=== PATIENT | female | born 1990 | race Hispanic/Latino ===

== ENCOUNTER 2019-05-26 19:39 | Emergency (ER) | payer OTHER, SELFPAY ==
[2019-05-26] MEDS ORDERED: TETANUS & DIPHTHERIA TOX,ADULT 0.5 ML VIAL ONE (20:08)
--- NOTE | 2019-05-26 20:31 | EDPHYS ---
Physician Documentation [facility] Name: Tara Sykes Age: 28 yrs Sex: Female : 1990 Arrival Date: 05/26/2019 Time: 19:41 Bed 20 Private MD: ED Physician Magdi Hobson HPI: 05/25 20:48 This 28 yrs old Female presents to ER via Ambulatory with complaints of kb Laceration To Leg. 20:48 The patient has a laceration related to: cutting the bottom of her boot with a razor kb blade and it slipped, cutting her right thigh occurred at home, and there are no complicating factors. The injury was accidental. The laceration(s) is(are) located on the right quadriceps. Onset: The symptoms/episode began/occurred just prior to arrival. Associated signs and symptoms: The patient has no apparent associated signs or symptoms. The patient has not experienced similar symptoms in the past. The patient has not recently seen a physician. 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 - Social history:: Smoking status: Patient reports the use of cigarette tobacco products, smokes one-half pack cigarettes per day. ROS: 20:44 Constitutional: Negative for fever, chills, and weight loss, Cardiovascular: Negative kb for chest pain, palpitations, and edema, Respiratory: Negative for shortness of breath, cough, wheezing, and pleuritic chest pain, Abdomen/GI: Negative for abdominal pain, nausea, vomiting, diarrhea, and constipation, Back: Negative for injury and pain, MS/Extremity: Negative for injury and deformity, Neuro: Negative for headache, weakness, numbness, tingling, and seizure. 20:44 Skin: Positive for laceration(s), of the right quadriceps. Exam: 20:44 Constitutional: This is a well developed, well nourished patient who is awake, alert, kb and in no acute distress. Head/Face: Normocephalic, atraumatic. Chest/axilla: Normal chest wall appearance and motion. Nontender with no deformity. No lesions are appreciated. Cardiovascular: Regular rate and rhythm with a normal S1 and S2. No gallops, murmurs, or rubs. Normal PMI, no JVD. No pulse deficits. Respiratory: Lungs have equal breath sounds bilaterally, clear to auscultation and percussion. No rales, rhonchi or wheezes noted. No increased work of breathing, no retractions or nasal flaring. Abdomen/GI: Soft, non-tender, with normal bowel sounds. No distension or tympany. No guarding or rebound. No evidence of tenderness throughout. MS/ Extremity: Pulses equal, no cyanosis. Neurovascular intact. Full, normal range of motion. Neuro: Awake and alert, GCS 15, oriented to person, place, time, and situation. Cranial nerves II-XII grossly intact. Motor strength 5/5 in all extremities. Sensory grossly intact. Cerebellar exam normal. Normal gait. 20:44 Skin: injury, laceration(s), the wound is approximately 5 cm(s), of the right quadriceps, that can be described as clean, no foreign body, linear, with mild bleeding. Vital Signs: 19:51 BP 123 / 84; Pulse 82; Resp 16 S; Temp 97(O); Pulse Ox 97% on R/A; Weight 68.04 kg (R); ca1 Height 5 ft. 4 in. (162.56 cm) (R); 19:51 Body Mass Index 25.75 (68.04 kg, 162.56 cm) ca1 Laceration: 20:46 Wound Repair of 5cm ( 2.0in ) subcutaneous laceration to right quadriceps. Linear kb shaped.. Distal neuro/vascular/tendon intact. Anesthesia: Wound infiltrated with 8 mls of 1% lidocaine. Wound prep: Extensive cleansing with hibiclenz by me, Wound irrigation with saline by me, Copious irrigation. Skin closed with 5 4-0 Prolene using 3 cruciate sutures and 2 simple sutures placed . Patient tolerated well. MDM: 19:55 Patient medically screened. kb 20:32 Data reviewed: vital signs, nurses notes. Data interpreted: Pulse oximetry: on room air kb is 97 %. Interpretation: normal. 20:45 Counseling: I had a detailed discussion with the patient and/or guardian regarding: the kb historical points, exam findings, and any diagnostic results supporting the discharge/admit diagnosis, the need for outpatient follow up, a family practitioner, to return to the emergency department if symptoms worsen or persist or if there are any questions or concerns that arise at home. 05/25 19:59 Order name: Prolene, Sutures; Complete Time: 20:20 kb 05/25 19:59 Order name: Dressing - Wound; Complete Time: 20:20 kb 05/25 19:59 Order name: Gloves, Sterile; Complete Time: 20:19 kb 05/25 19:59 Order name: Setup Suture Tray; Complete Time: 20:19 kb Administered Medications: 20:10 Drug: Tetanus-Diphtheria Toxoid Adult 0.5 ml {Water And Fire Technician: PISTIS Consult. Exp: ea 02/18/2021. Lot #: [id number]. } Route: IM; Site: right deltoid; 20:50 Follow up: Response: No adverse reaction 20:19 Drug: Lidocaine (1 %) 1 vials {Note: administered per provider during lac repair.} ah Volume: 20 ml; Route: Infiltration; Disposition: 05/26 04:08 Co-signature as Attending Physician, Magdi Hobson MD I agree with the assessment and tw4 plan of care. Disposition: 05/26/19 20:30 Discharged to Home. Impression: Laceration without foreign body of lower leg - right thigh. - Condition is Stable. - Discharge Instructions: Laceration Care, Adult, [id number]. - Medication Reconciliation Form, Thank You Letter, Antibiotic Education, Prescription Opioid Use form. - Follow up: Emergency Department; When: As needed; Reason: Worsening of condition. Follow up: Private Physician; When: 2 - 3 days; Reason: Recheck today's complaints, Continuance of care, Re-evaluation by your physician. - Notes: Have sutures removed in 10-14 days Watch for signs of infection, including redness, swelling, drainage, and warmth Keep clean and dry Signatures: Loretta Ramos FNP-C FNP-Rachel Hi RN RN ea Wadley, Terrence, MD MD tw4 Jeri Ring RN RN ca1 Harris, Amy, RN RN Corrections: (The following items were deleted from the chart) 05/25 20:55 20:30 05/26/2019 20:30 Discharged to Home. Impression: Laceration without foreign body ea of lower leg - right thigh. Condition is Stable. Forms are Medication Reconciliation Form, Thank You Letter, Antibiotic Education, Prescription Opioid Use. Follow up: Emergency Department; When: As needed; Reason: Worsening of condition. Follow up: Private Physician; When: 2 - 3 days; Reason: Recheck today's complaints, Continuance of care, Re-evaluation by your physician. kb
--- NOTE | 2019-05-26 20:31 | ER ---
Nurse's Notes [facility] Name: Tara Sykes Age: 28 yrs Sex: Female : 1990 Arrival Date: 05/26/2019 Time: 19:41 Bed 20 Private MD: Diagnosis: Laceration without foreign body of lower leg-right thigh Presentation: 05/25 19:51 Chief complaint: Patient states: Accidentally cut self with a razor blade on the R ca1 thigh. Coronavirus screen: The patient has NOT traveled to a country currently being monitored by the [facility] within the last 14 days. The patient has NOT had contact with any known and/or suspected case of coronavirus. Ebola Screen: Patient negative for fever greater than or equal to 101.5 degrees Fahrenheit, and additional compatible Ebola Virus Disease symptoms Patient denies exposure to infectious person. Patient denies travel to an Ebola-affected area in the 21 days before illness onset. No symptoms or risks identified at this time. Initial Sepsis Screen: Does the patient meet any 2 criteria? No. Patient's initial sepsis screen is negative. Does the patient have a suspected source of infection? No. Patient's initial sepsis screen is negative. Risk Assessment: Do you want to hurt yourself or someone else? Patient reports no desire to harm self or others. Onset of symptoms was May 26, 2019. 19:51 Method Of Arrival: Ambulatory ca1 19:51 Acuity: NIKKI 4 ca1 22:09 Complicating Factors: There are no complicating factors for this patient. 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 - Social history:: Smoking status: Patient reports the use of cigarette tobacco products, smokes one-half pack cigarettes per day. Screenin:13 Abuse screen: Denies threats or abuse. Nutritional screening: No deficits noted. Tuberculosis screening: No symptoms or risk factors identified. Fall Risk None identified. Assessment: 20:06 General: Appears uncomfortable, Behavior is calm, cooperative. Pain: Complains of pain ah in right quadriceps Pain does not radiate. Pain currently is 8 out of 10 on a pain scale. Quality of pain is described as burning, sharp, Pain began 1 hour ago. Neuro: Level of Consciousness is awake, alert, Oriented to person, place, time, situation. Cardiovascular: Heart tones S1 S2 present Capillary refill < 3 seconds Patient's skin is warm and dry. Respiratory: Airway is patent Respiratory effort is even, unlabored, Respiratory pattern is regular, symmetrical, Breath sounds are clear bilaterally. GI: No signs and/or symptoms were reported involving the gastrointestinal system. : No signs and/or symptoms were reported regarding the genitourinary system. EENT: No signs and/or symptoms were reported regarding the EENT system. Musculoskeletal: No signs and/or symptoms reported regarding the musculoskeletal system. Injury Description: Laceration sustained to right quadriceps is clean, 2.6 to 7.5 cm long, bleeding moderately, was sustained 30-60 minutes ago. is bleeding moderately. 20:54 Reassessment: Patient and/or family updated on plan of care and expected duration. Pain ea level reassessed. Patient is alert, oriented x 3, equal unlabored respirations, skin warm/dry/pink. Discharge instruction given to patient, verbalized the understanding fo instruction. Pt left ED accompanied by family, pt tolerating well. Vital Signs: 19:51 BP 123 / 84; Pulse 82; Resp 16 S; Temp 97(O); Pulse Ox 97% on R/A; Weight 68.04 kg (R); ca1 Height 5 ft. 4 in. (162.56 cm) (R); 19:51 Body Mass Index 25.75 (68.04 kg, 162.56 cm) ca1 ED Course: 19:41 Patient arrived in ED. cl3 19:52 Triage completed. ca1 19:52 [facility]oret[facility] Ramos [facility]C [facility] kb 19:52 Magdi Hobson MD is Attending Physician. kb 19:53 Arm band placed on right wrist. ca1 19:56 Ebony Barrios, RN is Primary Nurse. 20:14 Patient has correct armband on for positive identification. Bed in low position. Call light in reach. 20:15 Assist provider with laceration repair Set up tray. Performed by Loretta DONALD. 20:54 Patient did not have IV access during this emergency room visit. ea Administered Medications: 20:10 Drug: Tetanus-Diphtheria Toxoid Adult 0.5 ml {Child Protective Investigator: Jobydu. Exp: ea 02/18/2021. Lot #: [id number]. } Route: IM; Site: right deltoid; 20:50 Follow up: Response: No adverse reaction ea 20:19 Drug: Lidocaine (1 %) 1 vials {Note: administered per provider during lac repair.} ah Volume: 20 ml; Route: Infiltration; Outcome: 20:30 Discharge ordered by . avni 20:53 Discharged to home ambulatory, with family. ea 20:53 Condition: stable 20:53 Discharge instructions given to patient, Instructed on discharge instructions, follow up and referral plans. Demonstrated understanding of instructions, follow-up care. 20:55 Patient left the ED. ea Signatures: Loretta Ramos, IT CONSULTANT-C IT CONSULTANT-Ckb Rachel Roberts RN RN Jeri Braun RN RN ca1 Lewis, Charde cl3 Ebony Barrios RN RN Corrections: (The following items were deleted from the chart) 19:54 19:51 68.04 kg Reported; Height 5 ft. 4 in. Reported; BMI: 25.7; ca1 ca1
[2019-05-26 21:08] VITALS: BP 123/84; TEMP 97; O2SAT 97
== END 2019-05-26 20:55 | disposition home or self-care (01) ==
LOC: ER 19:39
PROC: 0JQL0ZZ Repair Right Upper Leg Subcutaneous Tissue and Fascia, Open Approach (ICD-10-PCS; principal; 2019-05-26)
DX: S71.111A Laceration without foreign body, right thigh, initial encounter (principal); W45.8XXA Other foreign body or object entering through skin, initial encounter; Y93.89 Activity, other specified; Y92.9 Unspecified place or not applicable; Z23 Encounter for immunization; Z88.1 Allergy status to other antibiotic agents; F17.210 Nicotine dependence, cigarettes, uncomplicated
CPT/HCPCS: 90471; 90714; 99283

== ENCOUNTER 2019-09-12 22:44 | Emergency (ER) | payer SELFPAY ==
[2019-09-13 00:20] LABS: Absolute Lymphocytes (CBC) 2.4 K/uL (0.7-4.9); Basophils % 0.5 % (0-1.3); Lymphocytes % 39.4 % (15.3-44.8); MPV 8.9 fL (7.6-11.3); RBC Red Blood Cell Count 4.73 M/uL (3.86-4.86)
[2019-09-13 00:30] LABS: ALT/SGPT 25 U/L (12-78); AST/SGOT 14 U/L (15-37); Albumin 3.8 g/dL (3.4-5.0); Alkaline Phosphatase 63 U/L (45-117); BUN Blood Urea Nitrogen 9 mg/dL (7-18); Bicarbonate 28 mmol/L (21-32); Bilirubin Direct < 0.1 mg/dL (0-0.2); Bilirubin Total 0.3 mg/dL (0.2-1.0); Glucose Level 98 mg/dL (74-106); Lipase 104 U/L (73-393); Potassium 3.1 mmol/L (3.5-5.1); Protein, Total 7.6 g/dL (6.4-8.2); Sodium Level 142 mmol/L (136-145)
[2019-09-13] MEDS ORDERED: FAMOTIDINE 20 MG/2 ML VIAL IV ONE (01:03)
[2019-09-13] MEDS ORDERED: MORPHINE 4 MG/ML SYR ONE (01:03)
[2019-09-13] MEDS ORDERED: ONDANSETRON 4 MG/2 ML VIAL ONE (01:03)
[2019-09-13] MEDS ORDERED: NA CHLORIDE 0.9% 1,000 ML ONE (01:03)
[2019-09-13 03:04] LABS: Urine Blood 3+ (NEG); Urine Glucose NEGATIVE (NEG); Urine Protein TRACE (NEG); Urine Specific Gravity 1.025 (1.005-1.030); Urine pH 7.5 (5.0-7.0)
[2019-09-13] MEDS ORDERED: POTASSIUM CL SA 10 MEQ TAB PO ONE (04:08)
[2019-09-13] MEDS ORDERED: SMZ./TMP. 800/160 MG TABLET ONE (04:08)
[2019-09-13] MEDS ORDERED: metroNIDAZOLE 500 MG TABLET ONE (04:08)
--- NOTE | 2019-09-13 04:28 | ER ---
Nurse's Notes [facility] Name: Tara Sykes Age: 29 yrs Sex: Female : 1990 Arrival Date: 09/12/2019 Time: 22:47 Bed 15 Private MD: Diagnosis: Colitis Presentation: 09/11 23:00 Chief complaint: Patient states: epigastric pain that began about 4 days, reports sg having had sonia and then experienced vomiting, pt denies any medical problems, states not a heavy drinker. Coronavirus screen: Proceed with normal triage. Ebola Screen: Patient negative for fever greater than or equal to 101.5 degrees Fahrenheit, and additional compatible Ebola Virus Disease symptoms Patient denies exposure to infectious person. Patient denies travel to an Ebola-affected area in the 21 days before illness onset. No symptoms or risks identified at this time. Initial Sepsis Screen: Does the patient meet any 2 criteria? No. Patient's initial sepsis screen is negative. Does the patient have a suspected source of infection? No. Patient's initial sepsis screen is negative. Risk Assessment: Do you want to hurt yourself or someone else? Patient reports no desire to harm self or others. Onset of symptoms was September 12, 2019. Care prior to arrival: None. Transition of care: patient was not received from another setting of care. 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 - Social history:: Smoking status: Patient denies any tobacco usage or history of. Screenin:15 Abuse screen: Denies threats or abuse. Nutritional screening: No deficits noted. jb4 Tuberculosis screening: No symptoms or risk factors identified. Fall Risk None identified. Assessment: 23:15 General: Appears in no apparent distress. uncomfortable, Behavior is calm, cooperative, jb4 appropriate for age. Pain: Complains of pain in left upper quadrant Pain does not radiate. Pain currently is 6 out of 10 on a pain scale. Quality of pain is described as burning, stabbing, Aggravated by Eating, drinking, worst with alcohol consumption. Neuro: Level of Consciousness is awake, alert, obeys commands, Oriented to person, place, time, situation. Cardiovascular: Patient's skin is warm and dry. Respiratory: Airway is patent Respiratory effort is even, unlabored, Respiratory pattern is regular, symmetrical. GI: Abdomen is flat, non-distended, Bowel sounds present X 4 quads. Abd is soft and non tender X 4 quads. Reports upper abdominal pain, cramping, diarrhea, gaseousness, nausea, vomiting. : No signs and/or symptoms were reported regarding the genitourinary system. EENT: No signs and/or symptoms were reported regarding the EENT system. Derm: Skin is intact, Skin is pink, warm \T\ dry. Musculoskeletal: Circulation, motion, and sensation intact. Range of motion: intact in all extremities. 09/12 00:20 Reassessment: Patient appears in no apparent distress at this time. Patient and/or jb4 family updated on plan of care and expected duration. Pain level reassessed. Patient is alert, oriented x 3, equal unlabored respirations, skin warm/dry/pink. 00:59 Reassessment: Patient and/or family updated on plan of care and expected duration. Pain ea level reassessed. Patient is alert, oriented x 3, equal unlabored respirations, skin warm/dry/pink. Pt refusing pain medication and nausea meds at this time. 01:51 Reassessment: Patient appears in no apparent distress at this time. Patient and/or jb4 family updated on plan of care and expected duration. Pain level reassessed. Patient is alert, oriented x 3, equal unlabored respirations, skin warm/dry/pink. 03:00 Reassessment: Patient appears in no apparent distress at this time. Patient and/or jb4 family updated on plan of care and expected duration. Pain level reassessed. Patient is alert, oriented x 3, equal unlabored respirations, skin warm/dry/pink. 04:00 Reassessment: Patient appears in no apparent distress at this time. Patient and/or jb4 family updated on plan of care and expected duration. Pain level reassessed. Patient is alert, oriented x 3, equal unlabored respirations, skin warm/dry/pink. 04:47 Reassessment: Patient appears in no apparent distress at this time. Patient and/or jb4 family updated on plan of care and expected duration. Pain level reassessed. Patient is alert, oriented x 3, equal unlabored respirations, skin warm/dry/pink. PT verbalized understanding of d/c and follow up instructions. Questions and concerns adressed. Ambulated out of ED with steady gait. Patient states feeling better. Vital Signs: 00:15 BP 123 / 85; Pulse 62; Resp 16; Temp 97.2(TE); Pulse Ox 98% on R/A; Weight 58.97 kg jb4 (R); Height 5 ft. 3 in. (160.02 cm); Pain 6/10; 01:30 BP 121 / 91; Pulse 93; Resp 16; Pulse Ox 97% on R/A; jb4 02:30 BP 124 / 83; Pulse 77; Resp 16; Pulse Ox 99% on R/A; jb4 04:15 BP 112 / 75; Pulse 82; Resp 16; Pulse Ox 96% on R/A; jb4 00:15 Body Mass Index 23.03 (58.97 kg, 160.02 cm) 4 ED Course: 09/11 22:47 Patient arrived in ED. ds1 23:10 Triage completed. sg 23:12 Arm band placed on. sg 23:16 Brian Nichols, RN is Primary Nurse. jb4 23:40 Inserted saline lock: 20 gauge in left antecubital area, using aseptic technique. 4 09/12 00:15 Patient has correct armband on for positive identification. Bed in low position. Call jb4 light in reach. Side rails up X 1. Pulse ox on. NIBP on. 00:18 Chau Clay MD is Attending Physician. [facility] 03:10 CT Abd/Pelvis - IV Contrast Only In Process Unspecified. EDMS 04:47 No provider procedures requiring assistance completed. IV discontinued, intact, jb4 bleeding controlled, No redness/swelling at site. Pressure dressing applied. Administered Medications: 00:59 Drug: Pepcid 20 mg Route: IVP; Site: left antecubital; ea 01:20 Follow up: Response: No adverse reaction jb4 00:59 Drug: NS 0.9% 1000 ml Route: IV; Rate: 1000 ml; Site: left antecubital; ea 01:45 Follow up: Response: No adverse reaction; IV Status: Completed infusion; IV Intake: jb4 1000ml 01:51 Not Given (Patient Refused): morphine 4 mg IVP once; RASS on ADMIN: Combtv4, Very jb4 Agttd3, Agttd2, Rstlss1, AlertClm0, Drwsy-1, Lt Sdtn-2, Mod Sdtn-3, Dp Sdtn-4, UnArsble-5 01:51 Not Given (Patient Refused): Zofran (Ondansetron) 4 mg IVP once; over 2 minutes jb4 04:00 Drug: Bactrim (160 mg-800 mg (DS) 1 tablet Route: PO; jb4 04:40 Follow up: Response: No adverse reaction jb4 04:00 Drug: Flagyl 500 mg Route: PO; jb4 04:40 Follow up: Response: No adverse reaction jb4 04:00 Drug: Potassium Chloride 40 mEq Route: PO; jb4 04:40 Follow up: Response: No adverse reaction jb4 Intake: 01:45 IV: 1000ml; Total: 1000ml. jb4 Outcome: 04:27 Discharge ordered by . 7 04:47 Discharged to home ambulatory. jb4 04:47 Condition: stable 04:47 Discharge instructions given to patient, Instructed on discharge instructions, follow up and referral plans. medication usage, Demonstrated understanding of instructions, follow-up care, medications, Prescriptions given X 4. 04:50 Patient left the ED. jb4 Signatures: Dispatcher [employer] EDMS Rodger Dao RN RN sg Sanford, Demi ds1 Brian Nichols RN RN jb4 Rachel Roberts RN RN ea Huhn, Donald 4 Chau Clay MD MD 7
--- NOTE | 2019-09-13 04:28 | EDPHYS ---
Physician Documentation [facility] Name: Tara Sykes Age: 29 yrs Sex: Female : 1990 Arrival Date: 09/12/2019 Time: 22:47 Bed 15 Private MD: ED Physician Chau Clay HPI: 09/12 01:08 This 29 yrs old Female presents to ER via Ambulatory with complaints of mh7 Abdominal Pain. 01:08 The patient presents with abdominal pain in the left upper quadrant, in the left lower mh7 quadrant. Onset: The symptoms/episode began/occurred 1 week(s) ago. The symptoms do not radiate. Associated signs and symptoms: Pertinent positives: nausea and vomiting, Pertinent negatives: anorexia, blood in stools, chest pain, constipation, diarrhea, dysuria, fever, headache, hematuria, palpitations, shortness of breath, vaginal discharge, vomiting blood. The symptoms are described as intermittent, vague, waxing/waning. Modifying factors: The symptoms are alleviated by nothing, the symptoms are aggravated by nothing. Severity of pain: At its worst the pain was moderate last night, in the emergency department the pain has improved moderately. 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 - Social history:: Smoking status: Patient denies any tobacco usage or history of. ROS: 09/12 01:08 Constitutional: Negative for fever, chills, and weight loss, Eyes: Negative for injury, mh7 pain, redness, and discharge, ENT: Negative for injury, pain, and discharge, Neck: Negative for injury, pain, and swelling, Cardiovascular: Negative for chest pain, palpitations, and edema, Respiratory: Negative for shortness of breath, cough, wheezing, and pleuritic chest pain, Back: Negative for injury and pain, : Negative for injury, bleeding, discharge, and swelling, MS/Extremity: Negative for injury and deformity, Skin: Negative for injury, rash, and discoloration, Neuro: Negative for headache, weakness, numbness, tingling, and seizure, Psych: Negative for depression, anxiety, suicide ideation, homicidal ideation, and hallucinations, Allergy/Immunology: Negative for hives, rash, and allergies, Endocrine: Negative for neck swelling, polydipsia, polyuria, polyphagia, and marked weight changes, Hematologic/Lymphatic: Negative for swollen nodes, abnormal bleeding, and unusual bruising. Exam: 01:08 Constitutional: This is a well developed, well nourished patient who is awake, alert, mh7 and in no acute distress. Head/Face: Normocephalic, atraumatic. Eyes: Pupils equal round and reactive to light, extra-ocular motions intact. Lids and lashes normal. Conjunctiva and sclera are non-icteric and not injected. Cornea within normal limits. Periorbital areas with no swelling, redness, or edema. ENT: Nares patent. No nasal discharge, no septal abnormalities noted. Tympanic membranes are normal and external auditory canals are clear. Oropharynx with no redness, swelling, or masses, exudates, or evidence of obstruction, uvula midline. Mucous membranes moist. Neck: Trachea midline, no thyromegaly or masses palpated, and no cervical lymphadenopathy. Supple, full range of motion without nuchal rigidity, or vertebral point tenderness. No Meningismus. Chest/axilla: Normal chest wall appearance and motion. Nontender with no deformity. No lesions are appreciated. Cardiovascular: Regular rate and rhythm with a normal S1 and S2. No gallops, murmurs, or rubs. Normal PMI, no JVD. No pulse deficits. Respiratory: Lungs have equal breath sounds bilaterally, clear to auscultation and percussion. No rales, rhonchi or wheezes noted. No increased work of breathing, no retractions or nasal flaring. 01:08 Back: No spinal tenderness. No costovertebral tenderness. Full range of motion. Skin: Warm, dry with normal turgor. Normal color with no rashes, no lesions, and no evidence of cellulitis. MS/ Extremity: Pulses equal, no cyanosis. Neurovascular intact. Full, normal range of motion. Neuro: Awake and alert, GCS 15, oriented to person, place, time, and situation. Cranial nerves II-XII grossly intact. Motor strength 5/5 in all extremities. Sensory grossly intact. Cerebellar exam normal. Normal gait. Psych: Awake, alert, with orientation to person, place and time. Behavior, mood, and affect are within normal limits. 01:08 Abdomen/GI: Inspection: abdomen appears normal, Bowel sounds: normal, in all quadrants, Palpation: moderate abdominal tenderness, in the left upper quadrant and left lower quadrant, Rectal exam: the exam is deferred, because of patient request, Indicators: McBurney's point is not tender, Pham's sign is negative, Rovsing's sign is negative, Obturator sign is negative, Psoas sign is negative, Liver: no appreciated palpable abnormalities, Hernia: not appreciated. Vital Signs: 00:15 BP 123 / 85; Pulse 62; Resp 16; Temp 97.2(TE); Pulse Ox 98% on R/A; Weight 58.97 kg jb4 (R); Height 5 ft. 3 in. (160.02 cm); Pain 6/10; 01:30 BP 121 / 91; Pulse 93; Resp 16; Pulse Ox 97% on R/A; jb4 02:30 BP 124 / 83; Pulse 77; Resp 16; Pulse Ox 99% on R/A; jb4 04:15 BP 112 / 75; Pulse 82; Resp 16; Pulse Ox 96% on R/A; jb4 00:15 Body Mass Index 23.03 (58.97 kg, 160.02 cm) jb4 MDM: 00:50 Patient medically screened. 7 04:25 Differential diagnosis: bowel obstruction, diverticulitis, Ectopic , mh7 gastritis, gastroesophageal reflux disease, non-specific abd pain, pancreatitis, Peptic Ulcer Disease, Pyelonephritis, Ureterolithiasis, urinary tract infection. Data reviewed: vital signs, nurses notes, lab test result(s), CBC, electrolytes, urinalysis, radiologic studies, CT scan. Data interpreted: Pulse oximetry: on room air is 98 %. Interpretation: normal. Counseling: I had a detailed discussion with the patient and/or guardian regarding: the historical points, exam findings, and any diagnostic results supporting the discharge/admit diagnosis, lab results, radiology results, the need for outpatient follow up, to return to the emergency department if symptoms worsen or persist or if there are any questions or concerns that arise at home. Response to treatment: the patient's symptoms have resolved after treatment, the patient's blood pressure is in an acceptable range, mental status has returned to baseline, the patient no longer shows bradycardia, the patient is not short of breath, the patient is not tachycardic, the patient's pain is gone, the patient's temperature has normalized. 09/11 23:31 Order name: Basic Metabolic Panel; Complete Time: 00:51 09/11 23:31 Order name: CBC with Diff; Complete Time: 00:51 09/11 23:31 Order name: Hepatic Function; Complete Time: 00:51 09/11 23:31 Order name: Lipase; Complete Time: 00:51 09/12 01:08 Order name: Urine Dipstick--Ancillary (enter results); Complete Time: 03:43 09/12 01:08 Order name: Urine --Ancillary (enter results); Complete Time: 03:43 09/12 01:44 Order name: CT Abd/Pelvis - IV Contrast Only [facility] 09/11 23:31 Order name: IV Saline Lock; Complete Time: 00:07 09/11 23:31 Order name: Labs collected and sent; Complete Time: 00:07 09/12 00:51 Order name: Urine Dipstick-Ancillary (obtain specimen); Complete Time: 01:08 [facility] 09/12 00:51 Order name: Urine Test (obtain specimen); Complete Time: 01:08 [facility] Administered Medications: 00:59 Drug: Pepcid 20 mg Route: IVP; Site: left antecubital; ea 01:20 Follow up: Response: No adverse reaction jb4 00:59 Drug: NS 0.9% 1000 ml Route: IV; Rate: 1000 ml; Site: left antecubital; ea 01:45 Follow up: Response: No adverse reaction; IV Status: Completed infusion; IV Intake: jb4 1000ml 01:51 Not Given (Patient Refused): morphine 4 mg IVP once; RASS on ADMIN: Combtv4, Very jb4 Agttd3, Agttd2, Rstlss1, AlertClm0, Drwsy-1, Lt Sdtn-2, Mod Sdtn-3, Dp Sdtn-4, UnArsble-5 01:51 Not Given (Patient Refused): Zofran (Ondansetron) 4 mg IVP once; over 2 minutes jb4 04:00 Drug: Bactrim (160 mg-800 mg (DS) 1 tablet Route: PO; jb4 04:40 Follow up: Response: No adverse reaction jb4 04:00 Drug: Flagyl 500 mg Route: PO; jb4 04:40 Follow up: Response: No adverse reaction jb4 04:00 Drug: Potassium Chloride 40 mEq Route: PO; jb4 04:40 Follow up: Response: No adverse reaction jb4 Disposition: 09/13/19 04:27 Discharged to Home. Impression: Colitis. - Condition is Stable. - Discharge Instructions: Colitis. - Prescriptions for Zofran ODT 4 mg Oral tablet,disintegrating - place 1 tablet by TRANSLINGUAL route every 8 hours; 10 tablet. Bentyl 20 mg Oral Tablet - take 1 tablet by ORAL route every 6 hours As needed; 20 tablet. Flagyl 500 mg Oral Tablet - take 1 tablet by ORAL route every 8 hours for 10 days; 30 tablet. Bactrim DS 800- 160 mg Oral Tablet - take 1 tablet by ORAL route every 12 hours for 7 days; 14 tablet. - Medication Reconciliation Form, Thank You Letter, Antibiotic Education, Prescription Opioid Use form. - Follow up: Private Physician; When: 1 - 2 days; Reason: Worsening of condition, Recheck today's complaints, Re-evaluation by your physician. - Problem is new. - Symptoms have improved. Signatures: Dispatcher [employer] EDRodger Lyons RN RN sg Bryson, James RN CECE jb4 Rachel Roberts RN Chau Oliver ea, MD MD mh7 Corrections: (The following items were deleted from the chart) 04:50 04:27 09/13/2019 04:27 Discharged to Home. Impression: Colitis. Condition is Stable. jb4 Forms are Medication Reconciliation Form, Thank You Letter, Antibiotic Education, Prescription Opioid Use. Follow up: Private Physician; When: 1 - 2 days; Reason: Worsening of condition, Recheck today's complaints, Re-evaluation by your physician. Problem is new. Symptoms have improved. mh7
[2019-09-13 04:57] VITALS: TEMP 97.2
[2019-09-13 05:02] VITALS: BP 112/75; O2SAT 96
--- NOTE | 2019-09-14 12:30 | RAD REPORT ---
EXAM DESCRIPTION: CT - Abdomen Pelvis W Contrast - 09/13/2019 7:09 am CLINICAL HISTORY: ABD PAIN COMPARISON: None. TECHNIQUE: Axial CT imaging of the abdomen and pelvis performed with intravenous contrast. Reformatt ed coronal and sagittal images reviewed. A dose reduction technique was utilized with automated exposure control according to patient size. FINDINGS: Lung bases are clear. Heart is normal in size. Normal liver, gallbladder, spleen, pancreas, adrenal glands, and kidneys. Normal caliber aorta and in ferior vena cava. Mesenteric vessels appear normal. No retroperitoneal lymphadenopathy. Normal stomach and small bowel loops. Appendix is normal within the right hemipelvis. There is mild c ircumferential thickening of the ascending colon and transverse colon. No ascites or free air. Unremarkable bladder. Intrauterine device identified within the uterus in appropriate position. Anter ior uterine body hyperdense 4.5 cm mass compatible with fibroid. Mild pelvic free fluid. Follicular c hanges are present within both ovaries. Normal lumbar lordosis. Bilateral L5 pars defect with 5 mm anterior subluxation of L5 on S1. There is a mild L4-5 posterior left paracentral disc protrusion. Intact bony pelvis. Normal hips. There are s everal benign-appearing bone islands within the right and left inferior acetabulum, left superior vj tabulum, and right femoral head. IMPRESSION: 1. Mild colitis involving the ascending and transverse colon. 2. Intrauterine fibroids. 3. Follicular ovarian changes. Minimal pelvic free fluid. 4. Small posterior left paracentral L4-5 disc protrusion. 5. Bilateral L5 spondylolysis with grade 1 spondylolisthesis of L5 on S1. Electronically signed by: Brisa Bae DO 09/13/2019 3:20 AM VibesT Due to temporary technical issues with the PACS/Fluency reporting system, reports are being signed b y the in house radiologist without review as a courtesy to ensure prompt reporting. The interpreting radiologist is fully responsible for the content of the report.
== END 2019-09-13 04:50 | disposition home or self-care (01) ==
LOC: ER 22:44
DX: K52.9 Noninfective gastroenteritis and colitis, unspecified (principal); Z88.1 Allergy status to other antibiotic agents
CPT/HCPCS: 36415; 74177; 80048; 80076; 81003; 81025; 83690; 85025; 96361; 96374; 99284; J2405; J7030; Q9967

== ENCOUNTER 2019-12-08 20:32 | Inpatient (IN) | payer SELFPAY ==
--- NOTE | 2019-12-08 21:16 | RAD REPORT ---
EXAM DESCRIPTION: CT - Ct Stroke Brain Wo Cont - 12/08/2019 9:02 pm CLINICAL HISTORY: NUMBNESS, right-sided headache and right-sided weakness, right visual change COMPARISON: No comparisons TECHNIQUE: Axial 5 millimeter thick images of the head were obtained without IV contrast. All CT scans are performed using dose optimization technique as appropriate and may include automated exposure control or mA/KV adjustment according to patient size. FINDINGS: No intracranial hemorrhage, mass, or cerebral edema. No acute infarction identifiable. No extra-axial fluid collections. Romero matter-white matter differentiation is preserved. Visualized portions of the mastoid air cells, paranasal sinuses, and orbits are unremarkable. Findings telephoned to the referring physician 9:13 p.m.. IMPRESSION: No CT evidence of acute intracranial process. If the patient has continued findings concerning for acute CVA, follow-up MR imaging could be perform ed.
--- NOTE | 2019-12-08 21:35 | EDPHYS ---
Physician Documentation [facility] Name: Tara Sykes Age: 29 yrs Sex: Female : 1990 Arrival Date: 12/08/2019 Time: 20:36 Bed 4 Private MD: ED Physician Leodan Dowd HPI: 12/07 21:20 This 29 yrs old Female presents to ER via Ambulatory with complaints of pkl Weakness, Eye Problem, Dizziness. 21:20 The patient presents to the emergency department with weakness of the right upper pkl extremity, right lower extremity, a vision problem, blurred vision, right eye. Onset: The symptoms/episode began/occurred just prior to arrival, 2 hour(s) ago. Associated signs and symptoms: Pertinent positives: altered mental status, dizziness, headache, nausea, paresthesias, weakness, right upper and lower extremities. 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 - Social history:: Smoking status: Patient denies any tobacco usage or history of. Patient/guardian denies using alcohol, street drugs. ROS: 21:20 ENT: Negative for injury, pain, and discharge. pkl 21:20 Eyes: Positive for blurry vision, of the right eye. 21:20 Neck: Negative for stiffness. 21:20 Cardiovascular: Negative for chest pain. 21:20 Respiratory: Negative for acute changes. 21:20 Abdomen/GI: Negative for abdominal pain, nausea, vomiting, and diarrhea. 21:20 Back: Negative for acute changes. 21:20 : Negative for urinary symptoms. 21:20 MS/extremity: Negative for acute changes. 21:20 Skin: Negative for rash. 21:20 Neuro: Negative for altered mental status. Exam: 21:20 Head/Face: Normocephalic, atraumatic. Eyes: Pupils equal round and reactive to light, pkl extra-ocular motions intact. Lids and lashes normal. Conjunctiva and sclera are non-icteric and not injected. Cornea within normal limits. Periorbital areas with no swelling, redness, or edema. ENT: Nares patent. No nasal discharge, no septal abnormalities noted. Tympanic membranes are normal and external auditory canals are clear. Oropharynx with no redness, swelling, or masses, exudates, or evidence of obstruction, uvula midline. Mucous membranes moist. Neck: Trachea midline, no thyromegaly or masses palpated, and no cervical lymphadenopathy. Supple, full range of motion without nuchal rigidity, or vertebral point tenderness. No Meningismus. Chest/axilla: Normal chest wall appearance and motion. Nontender with no deformity. No lesions are appreciated. Cardiovascular: Regular rate and rhythm with a normal S1 and S2. No gallops, murmurs, or rubs. Normal PMI, no JVD. No pulse deficits. Respiratory: Lungs have equal breath sounds bilaterally, clear to auscultation and percussion. No rales, rhonchi or wheezes noted. No increased work of breathing, no retractions or nasal flaring. Abdomen/GI: Soft, non-tender, with normal bowel sounds. No distension or tympany. No guarding or rebound. No evidence of tenderness throughout. Back: No spinal tenderness. No costovertebral tenderness. Full range of motion. Skin: Warm, dry with normal turgor. Normal color with no rashes, no lesions, and no evidence of cellulitis. MS/ Extremity: Pulses equal, no cyanosis. Neurovascular intact. Full, normal range of motion. 21:20 Neuro: Orientation: is normal, Mentation: is normal, Memory: is normal, Cranial nerves: grossly normal, Cerebellar function: normal finger to nose testing, heel to rodriguez testing is normal, Motor: is normal, Sensation: is normal, Gait: is steady. Vital Signs: 20:52 BP 117 / 86; Pulse 86; Resp 16; Temp 98.0(TE); Pulse Ox 100% on R/A; Pain 6/10; jb4 21:42 BP 109 / 64; Pulse 64; Resp 16 S; Pulse Ox 98% on R/A; ca1 22:16 BP 95 / 75; Pulse 68; Resp 16 S; Pulse Ox 99% on R/A; ca1 NIH Stroke Scale Scores: 21:13 NIHSS Score: 0 ca1 MDM: 21:16 Patient medically screened. pkl 21:20 Data reviewed: vital signs, nurses notes, lab test result(s), EKG, radiologic studies. pkl 21:20 ED course: Talked to Dr. Faust, no thrombolytic. Patient's symptoms have resolved. pkl NIH Stroke scale 0. 12/07 21:22 Order name: Glucose, Ancillary Testing; Complete Time: 22:48 [facility] 12/07 21:39 Order name: Basic Metabolic Panel; Complete Time: 06:04 [facility] 12/07 21:39 Order name: CBC with Diff; Complete Time: 06:04 [facility] 12/07 21:39 Order name: Protime (+inr); Complete Time: 06:04 [facility] 12/07 21:39 Order name: Ptt, Activated; Complete Time: 06:04 [facility] 12/07 22:08 Order name: Urine Dipstick--Ancillary (enter results); Complete Time: 22:48 [facility] 12/07 20:59 Order name: Ct Stroke Brain Wo Cont; Complete Time: 21:33 [facility] 12/07 21:29 Order name: Chest Single View [facility] 12/07 21:39 Order name: EKG; Complete Time: 21:40 [facility] 12/07 21:39 Order name: Cardiac monitoring; Complete Time: 21:41 [facility] 12/07 21:39 Order name: EKG - Nurse/Tech; Complete Time: 21:41 [facility] 12/07 21:39 Order name: IV Saline Lock; Complete Time: 21:41 [facility] 12/07 22:08 Order name: Urine --Ancillary (enter results); Complete Time: 22:48 [facility] 12/07 21:39 Order name: Labs collected and sent; Complete Time: 21:41 [facility] 12/07 21:39 Order name: O2 Per Protocol; Complete Time: 21:41 [facility] 12/07 21:39 Order name: O2 Sat Monitoring; Complete Time: 21:41 [facility] 12/07 21:39 Order name: Stroke Swallow Screen; Complete Time: 21:41 la1 Administered Medications: 21:34 Drug: Aspirin 325 mg Route: PO; ca1 21:42 Follow up: Response: No adverse reaction ca1 Point of Care Testing: Blood Glucose: 21:18 Blood Glucose: 129 mg/dL; ca1 Ranges: Critical Glucose Levels:Adult <50 mg/dl or >400 mg/dl <40 mg/dl or >180 mg/dl Disposition: 12/08/19 21:34 Hospitalization ordered by Italo Alvarenga for Observation. Preliminary diagnosis is Acute heasache. Stroke symptoms ( Resolved ) Transient Ischemic Attack. - Bed requested for Telemetry/MedSurg (observation). - Status is Observation. bb - Condition is Stable. - Problem is new. - Symptoms are resolved. NIH Stroke Scale - NIH Stroke Score Date: 12/08/2019 Time: 21:13 Total Score = 0 1a. Level of Consciousness (LOC) - 0(Alert) 1b. Level of Consciousness (LOC) (Year \T\ Age) - 0(Both) 1c. LOC Commands (Open \T\ Closes Eyes/Sewer Cleaner) - 0(Both) 2. Best Gaze (Lateral Gaze Paresis) - 0(Normal) 3. Visual Field Loss - 0(No visual loss) 4. Facial Palsy - 0(Normal) 5a. Left Arm: Motor (10-second hold) - 0(No drift) 5b. Right Arm: Motor (10-second hold) - 0(No drift) 6a. Left Leg: Motor (5-second hold - always test supine) - 0(No drift) 6b. Right Leg: Motor (5-second hold - always test supine) - 0(No drift) 7. Limb Ataxia (finger/nose \T\ heel/rodriguez - test with eyes open) - 0(Absent) 8. Sensory Loss (pinprick arms/legs/face) - 0(Normal) 9. Best Language: Aphasia (description/naming/reading) - 0(No aphasia) 10. Dysarthria (speech clarity - read or repeat words) - 0(Normal) 11. Extinction and Inattention (visual/tactile/auditory/spatial/personal) - 0(No abnormality) Initials: ca1 Signatures: Dispatcher [employer] EDLeodan Schumacher MD MD pkl Fanny Henderson, RN RN bb Александр Yanez, [employer] OVEN ASSEMBLER-C [employer] ASSEMBLER-Cla1 Landy Amezquita, CECE RN cg Brian Nichols, CECE RN jb4 Jeri Ring RN RN ca1 Corrections: (The following items were deleted from the chart) 23:16 21:34 Hospitalization Ordered by Italo Alvarenga MD for Observation. Preliminary cg diagnosis is Acute heasache. Stroke symptoms ( Resolved ) Transient Ischemic Attack. Bed requested for Telemetry/MedSurg (observation). Status is Observation. Condition is Stable. Problem is new. Symptoms are resolved. pkl 23:31 23:16 12/08/2019 21:34 Hospitalization Ordered by Italo Alvarenga MD for bb Observation. Preliminary diagnosis is Acute heasache. Stroke symptoms ( Resolved ) Transient Ischemic Attack. Bed requested for Telemetry/MedSurg (observation). Status is Observation. Condition is Stable. Problem is new. Symptoms are resolved. cg
--- NOTE | 2019-12-08 21:35 | ER ---
Nurse's Notes [facility] – [place], [place] Name: Tara Sykes Age: 29 yrs Sex: Female : 1990 Arrival Date: 12/08/2019 Time: 20:36 Bed 4 Private MD: Diagnosis: Acute heasache. Stroke symptoms ( Resolved ) Transient Ischemic Attack Presentation: 12/07 20:52 Chief complaint: Chief complaint: Patient states: I was at work and felt weak on my jb4 right side. I have a a sharp headache on the right side of my head. I lost my right peripheral vision. I had right sided weakness and felt like I was going to fall over. I took a low dose aspirin prior to coming to the ED and my vision has improved some. 20:52 Coronavirus screen: Client denies travel out of the [place] in the last 14 days. At this jb4 time, the client does not indicate any symptoms associated with coronavirus-19. Ebola Screen: No symptoms or risks identified at this time. 20:52 Method Of Arrival: Ambulatory jb4 20:52 An acute neurological deficit is present. The charge nurse has been notified. The jb4 patient has been moved to a treatment area. Initial Sepsis Screen: Does the patient meet any 2 criteria? No. Patient's initial sepsis screen is negative. Does the patient have a suspected source of infection? No. Patient's initial sepsis screen is negative. Risk Assessment: Do you want to hurt yourself or someone else? Patient reports no desire to harm self or others. Onset of symptoms was December 08, 2019 at 19:00. Transition of care: patient was not received from another setting of care. 20:52 Acuity: NIKKI 2 jb4 21:18 Pre-hospital glucose is not applicable to this patient. ca1 Triage Assessment: 20:52 The onset of the patients symptoms was December 08, 2019 at 19:00. General: Appears in jb4 no apparent distress. uncomfortable, Behavior is calm, cooperative, appropriate for age. Pain: Complains of pain in Right sided headache. Neuro: Reports blurred vision in right eye dizziness, since 1900 headache in right frontal area, weakness in Right sided. 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 - Social history:: Smoking status: Patient denies any tobacco usage or history of. Patient/guardian denies using alcohol, street drugs. Screenin:13 Abuse screen: Denies threats or abuse. Denies injuries from another. Nutritional ca1 screening: No deficits noted. Tuberculosis screening: No symptoms or risk factors identified. Fall Risk IV access (20 points). Assessment: 20:55 Reassessment: TO CT with CECE Vinson. ca1 21:13 VAN Scoring: Arm Drift: Patients demonstrates NO arm weakness. Patient is VAN Negative. ca1 Patient has been NPO before screening. The patient is alert, and able to follow commands. The patient does not exhibit slurred or garbled speech. The patient is not exhibiting difficulty speaking. The patient does not exhibit difficulty understanding words. The patient is able to swallow own secretions with no drooling or need for suction. Patient tolerated one teaspoon of water. No drooling, immediate coughing, gurgling, or clearing of the throat was noted. The patient tolerated 90mL of water. No drooling, immediate coughing, gurgling, or clearing of the throat was noted. The patient passed the bedside swallow screening. Oral medications may be given as ordered. Contact Physician for further diet orders. Provider notified of bedside swallow screening results: Leodan Dowd MD. 21:16 General: Appears in no apparent distress. comfortable, Behavior is calm, cooperative, ca1 appropriate for age. Pain: Complains of pain in face and scalp Pain currently is 6 out of 10 on a pain scale. Pain began 2-3 days ago. 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 Gait is steady, Speech is normal, Facial symmetry appears normal, Pupils are PERRLA, Intact Reports blurred vision in right eye diplopia. Cardiovascular: Heart tones S1 S2 present Capillary refill < 3 seconds Patient's skin is warm and dry. Rhythm is sinus rhythm. Respiratory: Airway is patent Respiratory effort is even, unlabored, Respiratory pattern is regular, symmetrical, Breath sounds are clear bilaterally. GI: Abdomen is flat, non-distended, Bowel sounds present X 4 quads. Abd is soft and non tender X 4 quads. : No signs and/or symptoms were reported regarding the genitourinary system. EENT: No signs and/or symptoms were reported regarding the EENT system. Derm: Skin is intact, is healthy with good turgor, Skin is pink, warm \T\ dry. Musculoskeletal: Circulation, motion, and sensation intact. Capillary refill < 3 seconds. 22:05 Reassessment: Patient appears in no apparent distress at this time. Patient and/or ca1 family updated on plan of care and expected duration. Pain level reassessed. Patient is alert, oriented x 3, equal unlabored respirations, skin warm/dry/pink. 22:24 Reassessment: Patient and/or family updated on plan of care and expected duration. Pain jb4 level reassessed. Patient is alert, oriented x 3, equal unlabored respirations, skin warm/dry/pink. Pt is sitting up in bed. Performed ramirez of view test again on both eyes. Pt reports having full peripheral vision back. 23:24 T-PA (Activase) Screening: Contraindications: Other: symptoms resolved. bb 23:25 Reassessment: report called to Brandy ZHAO for room 216. bb Vital Signs: 20:52 BP 117 / 86; Pulse 86; Resp 16; Temp 98.0(TE); Pulse Ox 100% on R/A; Pain 6/10; jb4 21:42 BP 109 / 64; Pulse 64; Resp 16 S; Pulse Ox 98% on R/A; ca1 22:16 BP 95 / 75; Pulse 68; Resp 16 S; Pulse Ox 99% on R/A; ca1 NIH Stroke Scale Scores: 21:13 NIHSS Score: 0 ca1 ED Course: 20:36 Patient arrived in ED. cf2 20:55 Arm band placed on right wrist. Patient PT to CT. jb4 21:02 Ct Stroke Brain Wo Cont In Process Unspecified. EDMS 21:09 Triage completed. jb4 21:13 Patient has correct armband on for positive identification. Placed in gown. Bed in low ca1 position. Call light in reach. Side rails up X2. manager creative services on. Pulse ox on. NIBP on. Warm blanket given. 21:13 No provider procedures requiring assistance completed. Initial lab(s) drawn, by me, ca1 sent to lab. Inserted saline lock: 20 gauge in left antecubital area, using aseptic technique. Blood collected. 21:16 Leodan Dowd MD is Attending Physician. pkl 21:32 Italo Alvarenga MD is Hospitalizing Provider. pkl 21:33 Jeri Ring RN is Primary Nurse. ca1 21:46 Chest Single View In Process Unspecified. EDMS 22:20 Report given to CECE Vinson. ca1 23:25 Patient admitted, IV remains in place. bb Administered Medications: 21:34 Drug: Aspirin 325 mg Route: PO; ca1 21:42 Follow up: Response: No adverse reaction ca1 Point of Care Testing: Blood Glucose: 21:18 Blood Glucose: 129 mg/dL; ca1 Ranges: Outcome: 21:34 Decision to Hospitalize by Provider. pkl 23:24 Admitted to Tele accompanied by tech, via wheelchair, room 216, with chart, Report bb called to Brandy ZHAO 23:24 Condition: stable 23:24 Instructed on the need for admit. 23:31 Patient left the ED. bb NIH Stroke Scale - NIH Stroke Score Date: 12/08/2019 Time: 21:13 Total Score = 0 1a. Level of Consciousness (LOC) - 0(Alert) 1b. Level of Consciousness (LOC) (Year \T\ Age) - 0(Both) 1c. LOC Commands (Open \T\ Closes Eyes/Packaging Supervisor) - 0(Both) 2. Best Gaze (Lateral Gaze Paresis) - 0(Normal) 3. Visual Field Loss - 0(No visual loss) 4. Facial Palsy - 0(Normal) 5a. Left Arm: Motor (10-second hold) - 0(No drift) 5b. Right Arm: Motor (10-second hold) - 0(No drift) 6a. Left Leg: Motor (5-second hold - always test supine) - 0(No drift) 6b. Right Leg: Motor (5-second hold - always test supine) - 0(No drift) 7. Limb Ataxia (finger/nose \T\ heel/rodriguez - test with eyes open) - 0(Absent) 8. Sensory Loss (pinprick arms/legs/face) - 0(Normal) 9. Best Language: Aphasia (description/naming/reading) - 0(No aphasia) 10. Dysarthria (speech clarity - read or repeat words) - 0(Normal) 11. Extinction and Inattention (visual/tactile/auditory/spatial/personal) - 0(No abnormality) Initials: ca1 Signatures: Dispatcher [employer] EDLeodan Schumacher MD MD pkl Fanny Henderson RN RN bb Brain Nichols RN RN jb4 Jeri Ring RN RN ca1 Masha Gilliam cf2 Corrections: (The following items were deleted from the chart) 21:09 20:52 Chief complaint: dania najera
[2019-12-08] MEDS ORDERED: ASPIRIN EC 325 MG TABLET PO ONE (21:40)
[2019-12-08 22:17] LABS: Urine Blood TRACE (NEG); Urine Glucose NEGATIVE (NEG); Urine Protein NEGATIVE (NEG); Urine Specific Gravity 1.015 (1.005-1.030)
[2019-12-08 23:10] LABS: Absolute Lymphocytes (CBC) 1.5 K/uL (0.7-4.9); Basophils % 0.4 % (0-1.3); Lymphocytes % 19.4 % (15.3-44.8); MPV 9.5 fL (7.6-11.3); RBC Red Blood Cell Count 4.77 M/uL (3.86-4.86)
[2019-12-08 23:14] LABS: Protime INR 1.01
--- NOTE | 2019-12-08 23:16 | P.HP ---
Certification for Inpatient Patient admitted to: Observation With expected LOS: <2 Midnights Patient will require the following post-hospital care: None Practitioner: I am a practitioner with admitting privileges, knowledge of patient current condition, hospital course, and medical plan of care. Services: Services provided to patient in accordance with Admission requirements found in Title 42 Section 412.3 of the Code of Federal Regulations <SatishemreАлександр - Last Filed: 12/08/19 23:11> Patient History Date of Service: 12/08/19 Primary Care Provider: None Reason for admission: TIA History of Present Illness: 29-year-old female with history of colitis presents emergency department for visual disturbances, right-sided weakness. Patient reports that she has been having right-sided temporal headaches for approximately the last 1 month. Patient reports that she gets approximately 1 headache per week and not the last approximately 24 hr. Patient reports that she does get visual disturbances with Blurry right peripheral vision during the headaches pain patient also reports tenderness to the right temporal region during these headaches. Today patient reports that she had a similar headache affecting her vision in her right eye but also developed weakness of the right upper extremity which worried her enough to bring her to the emergency department for evaluation. Code stroke was called due to patient's visual disturbances and apparent right arm drift. CT stroke protocol was negative for any acute findings. ED provider wishes to admit patient for further evaluation and management. Symptoms completely resolved at this time. When I saw the patient in the emergency department she is awake, alert, orient x4. NH is 0 patient with no focal neurological deficits. Headache has resolved. Neurology was consulted while patient is in emergency department recommend stroke workup. Patient be admitted for further evaluation and management. - Past Medical/Surgical History Diabetic: No -: Colitis -: none Psychosocial/ Personal History: Patient lives at home with her is currently unemployed. - Family History Family History: Reviewed- Non-Contributory - Social History Smoking Status: Never smoker Alcohol use: No CD- Drugs: Yes Caffeine use: Yes Place of Residence: Home <Александр Yanez - Last Filed: 12/08/19 23:11> Date of Service: 12/10/19 <Italo Alvarenga - Last Filed: 12/10/19 16:06> Review of Systems 10-point ROS is otherwise unremarkable Neurological: As per HPI <Александр Yanez - Last Filed: 12/08/19 23:11> Physical Examination - Physical Exam General: Alert, In no apparent distress, Oriented x3 HEENT: Atraumatic, Normocephalic, Mucous membr. moist/pink, Abnormal EOM (Patient with significant right beating nystagmus. Patient reports that she has had this her entire life.) Neck: Supple Respiratory: Clear to auscultation bilaterally, Normal air movement Cardiovascular: No edema, Regular rate/rhythm, Normal S1 S2 Capillary refill: <2 Seconds Gastrointestinal: Normal bowel sounds, Soft and benign, No tenderness, No masses, No rebound Musculoskeletal: No contractures, No erythema, No tenderness Integumentary: No significant lesion, No tenderness/swelling, No erythema Neurological: Normal gait, Normal speech, Normal strength at 5/5 x4 extr, Normal tone, Sensation intact, Cranial nerves 3-12 intact, Normal affect <Александр Yanez - Last Filed: 12/08/19 23:11> - Studies Microbiology Data (last 24 hrs): 12/09/19 00:30 Nasopharnyx Coronavirus COVID-19 PCR - Final <Italo Alvarenga - Last Filed: 12/10/19 16:06> Assessment and Plan - Plan Assessment TIA Plan TIA: Continue with MRI stroke protocol, echocardiogram, PT OT eval, daily aspirin, folic acid. Neurology consulted. Due to complaint of right temporal pain and tenderness have obtained CRP and ESR. Suspect complex migraines. Appreciate further input from neurology. Discharge Plan: Home Plan to discharge in: 24 Hours - Advance Directives Does patient have a Living Will: No Does patient have a Durable POA for Healthcare: No - Code Status/Comfort Care Code Status Assessed: Yes (Patient is full code) Critical Care: No Time Spent Managing Pts Care (In Minutes): 55 <Александр Yanez - Last Filed: 12/08/19 23:11> Physician Review Additional Text: Plan of care discussed with Александр Yanez, and I agree with the management plan as noted above. <Italo Alvarenga - Last Filed: 12/10/19 16:06>
[2019-12-08 23:18] LABS: Potassium 3.6 mmol/L (3.5-5.1)
[2019-12-08] MEDS ORDERED: HYDROCODONE/APAP 5/325 MG TAB PO PRN (23:45)
[2019-12-08] MEDS ORDERED: ACETAMINOPHEN 500 MG TAB PO PRN (23:45)
[2019-12-09] MEDS: ONDANSETRON 4 MG/2 ML VIAL IV PRN ×2 (01:59→16:42)
[2019-12-09 02:06] VITALS: BMI 23.9
[2019-12-09 04:11] LABS: Absolute Lymphocytes (CBC) 2.8 K/uL (0.7-4.9); Basophils % 0.7 % (0-1.3); Lymphocytes % 42.2 % (15.3-44.8); MPV 9.2 fL (7.6-11.3); RBC Red Blood Cell Count 4.29 M/uL (3.86-4.86)
[2019-12-09 04:33] LABS: BUN Blood Urea Nitrogen 8 mg/dL (7-18); Bicarbonate 27 mmol/L (21-32); Glucose Level 90 mg/dL (74-106); HDL Cholesterol 58 mg/dL (40-60); LDL Cholesterol, Calculated 143 (<130); Potassium 3.4 mmol/L (3.5-5.1); Sodium Level 144 mmol/L (136-145)
--- NOTE | 2019-12-09 07:20 | RAD REPORT ---
EXAM DESCRIPTION: RAD - Chest Single View - 12/08/2019 9:46 pm CLINICAL HISTORY: POST STROKE COMPARISON: None TECHNIQUE: AP portable chest image was obtained 12/08/2019 9:46 pm . FINDINGS: Lungs are clear. Heart and vasculature are normal. No measurable pleural effusion and no p neumothorax. No acute bony abnormality seen. No acute aortic findings suspected. IMPRESSION: No acute cardiopulmonary process.
[2019-12-09] MEDS ORDERED: ASPIRIN EC 81 MG TAB PO SCH (09:00)
[2019-12-09] MEDS ORDERED: ENOXAPARIN 40 MG/0.4 ML SQ SCH (09:00)
[2019-12-09] MEDS ORDERED: POTASSIUM CL SA 10 MEQ TAB PO ONE (09:00)
[2019-12-09] MEDS ORDERED: FOLIC ACID 1 MG TABLET PO SCH (09:00)
[2019-12-09] MEDS ORDERED: PANTOPRAZOLE 40MG TABLET PO SCH (09:30)
[2019-12-09 13:13] VITALS: O2SAT 99
--- NOTE | 2019-12-09 15:13 | ECHO ---
HEIGHT: 5 ft 3 in WEIGHT: 135 lb 3.2 oz DATE OF STUDY: 12/09/[address]: Александр Yanez NP 2-DIMENSIONAL: YES M.MODE: YES DOPPLER: YES COLOR FLOW: YES TDS: NO PORTABLE: NO DEFINITY: NO BUBBLE STUDY: NO DIAGNOSIS: TRANSIENT ISCHEMIC ATTACK CARDIAC HISTORY: CATHERIZATION: NO SURGERY: NO PROSTHETIC VALVE: NO PACEMAKER: NO MEASUREMENTS (cm) DIASTOLIC (NORMALS) SYSTOLIC (NORMALS) IVSd 0.8 (0.6-1.2) LA Diam 2.9 (1.9-4.0) LVEF 69% LVIDd 4.1 (3.5-5.7) LVIDs 2.5 (2.0-3.5) %FS 38% LVPWd 0.9 (0.6-1.2) Ao Diam 2.6 (2.0-3.7) 2 DIMENSIONAL ASSESSMENT: RIGHT ATRIUM: NORMAL LEFT ATRIUM: NORMAL RIGHT VENTRICLE: NORMAL LEFT VENTRICLE: NORMAL TRICUSPID VALVE: NORMAL MITRAL VALVE: NORMAL PULMONIC VALVE: NORMAL AORTIC VALVE: NORMAL PERICARDIAL EFFUSION: NONE AORTIC ROOT: NORMAL LEFT VENTRICULAR WALL MOTION: NORMAL. DOPPLER/COLOR FLOW: NORMAL. COMMENTS: NORMAL LEFT VENTRICULAR EJECTION FRACTION 55-60%. NORMAL WALL MOTION. NORMAL STUDY TECHNOLOGIST: CARISSA AVERY
[2019-12-09] MEDS ORDERED: FAMOTIDINE 20 MG TAB PO ONE (18:00)
[2019-12-09 18:09] VITALS: TEMP 97.5
--- NOTE | 2019-12-09 18:42 | P.DS ---
Admission Date: 12/09/19 Discharge Date: 12/09/19 Primary Care Provider: None Disposition: ROUTINE DISCHARGE Discharge Condition: GOOD Reason for Admission: TIA Consultations: Neurology- Dr. Faust Procedures: CT head without contrast FINDINGS: No intracranial hemorrhage, mass, or cerebral edema. No acute infarction identifiable. No extra-axial fluid collections. Romero matter-white matter differentiation is preserved. Visualized portions of the mastoid air cells, paranasal sinuses, and orbits are unremarkable. Findings telephoned to the referring physician 9:13 p.m.. IMPRESSION: No CT evidence of acute intracranial process. If the patient has continued findings concerning for acute CVA, follow-up MR imaging could be performed. Chest x-ray TECHNIQUE: AP portable chest image was obtained 12/08/2019 9:46 pm . FINDINGS: Lungs are clear. Heart and vasculature are normal. No measurable pleural effusion and no pneumothorax. No acute bony abnormality seen. No acute aortic findings suspected. IMPRESSION: No acute cardiopulmonary process. Echocardiogram NORMAL LEFT VENTRICULAR EJECTION FRACTION 55-60%. NORMAL WALL MOTION. NORMAL STUDY MRI brain without contrast FINDINGS: No intracranial hemorrhage, hydrocephalus, or extra-axial fluid collection. No edema or shift of midline structures. No intracranial mass. DWI is negative for acute CVA. The midline structures are normally formed. Mastoid air cells and paranasal sinuses are clear. Post-contrast images show no abnormal enhancement to suggest tumor or infection. IMPRESSION: No acute or concerning intracranial abnormalities. No pathologic post-contrast enhancement suspected. MRI/MRA neck FINDINGS: Contrast enhance 2D [id number] MR angiography of the neck vessels was performed. A left aortic arch is seen with normal branching pattern of the great vessels. Both common carotid arteries and subclavian arteries are patent. No significant internal carotid artery stenosis. Antegrade flow seen in both vertebral arteries. IMPRESSION: No significant flow abnormality of the neck vessels identified. MRA head FINDINGS: 3D noncontrast [id number] MR angiography of the [place] was performed. No aneurysm, flow-limiting stenosis or vascular malformation is seen. Forward flow seen in the vertebral arteries. The visualized dural venous sinuses appear patent. IMPRESSION: No significant flow abnormality of the [place] is identified. Medical problem list Complex migraine headaches History of colitis Brief History of Present Illness: 29-year-old female with history of colitis presents emergency department for visual disturbances, right-sided weakness. Patient reports that she has been having right-sided temporal headaches for approximately the last 1 month. Patient reports that she gets approximately 1 headache per week and not the last approximately 24 hr. Patient reports that she does get visual disturbances with Blurry right peripheral vision during the headaches pain patient also reports tenderness to the right temporal region during these headaches. Today patient reports that she had a similar headache affecting her vision in her right eye but also developed weakness of the right upper extremity which worried her enough to bring her to the emergency department for evaluation. Code stroke was called due to patient's visual disturbances and apparent right arm drift. CT stroke protocol was negative for any acute findings. ED provider wishes to admit patient for further evaluation and management. Symptoms completely resolved at this time. When I saw the patient in the emergency department she is awake, alert, orient x4. NH is 0 patient with no focal neurological deficits. Headache has resolved. Neurology was consulted while patient is in emergency department recommend stroke workup. Patient be admitted for further evaluation and management. Hospital Course: 29-year-old male with history of migraine headaches was admitted to the hospital for neurological symptoms of headache, visual disturbances of the right eye, weakness of the right arm that all resolved prior to admission. Patient reported that she does have migraine headaches but this headache is different due to the Heaviness in the right arm. Patient with NIH at 0 on admission, no significant past medical history aside from colitis and migraines. Patient reports that she gets headaches usually about once a week and that they last for about 24 hr. Patient also reported pain and tenderness in the right temporal area during her headaches. CT head brain without contrast in the emergency department was negative for any acute findings, chest x-ray unremarkable. Labs unremarkable. Obtained ESR and CRP to help rule out temporal arteritis, both were negative. Patient remained at baseline mental status with no focal neurological deficits on admission. Patient has done well. MRI stroke protocol negative for any acute findings, echo within normal limits. Suspect complex migraines rather than TIA given patient's history/physical/risk factors. The patient be discharged with aspirin 81 mg p.o. daily. Vital Signs/Physical Exam: Temp Pulse Resp BP Pulse Ox 97.5 F 69 18 104/67 97 12/09/19 16:00 12/09/19 16:00 12/09/19 16:00 12/09/19 16:12/09/19 16:00 General: Alert, In no apparent distress, Oriented x3 HEENT: Atraumatic, PERRLA, Mucous membr. moist/pink, Abnormal EOM (Patient with significant right beating nystagmus) Neck: Supple, JVD not distended Respiratory: Clear to auscultation bilaterally, Normal air movement Cardiovascular: Regular rate/rhythm, Normal S1 S2 Capillary refill: <2 Seconds Gastrointestinal: Normal bowel sounds, No tenderness Musculoskeletal: No tenderness Integumentary: No rashes Neurological: Normal speech, Normal tone, Normal affect Laboratory Data at Discharge: WBC 6.7 K/uL (4.3-10.9) D 12/09/19 03:50 Hgb 13.0 g/dL (12.0-15.0) 12/09/19 03:50 Hct 38.0 % (36.0-45.0) 12/09/19 03:50 Plt Count 221 K/uL (152-406) 12/09/19 03:50 PT 11.9 SECONDS (9.5-12.5) 12/08/19 21:08 INR 1.01 12/08/19 21:08 APTT 36.0 SECONDS (24.3-36.9) 12/08/19 21:08 Sodium 144 mmol/L (136-145) 12/09/19 03:50 Potassium 4.2 mmol/L (3.5-5.1) 12/09/19 17:04 BUN 8 mg/dL (7-18) 12/09/19 03:50 Creatinine 0.63 mg/dL (0.55-1.3) 12/09/19 03:50 Glucose 90 mg/dL (74-106) 12/09/19 03:50 Triglycerides 91 mg/dL (<150) 12/09/19 03:50 Cholesterol 219 mg/dL (<200) H 12/09/19 03:50 HDL Cholesterol 58 mg/dL (40-60) 12/09/19 03:50 Cholesterol/HDL Ratio 3.78 12/09/19 03:50 Home Medications: RX: Aspirin [Jason Chewable Aspirin] 81 mg PO DAILY 12/09/19 Patient Discharge Instructions: 1. Please establish yourself with primary care doctor and follow up in the next 1-2 weeks to follow up this hospitalization. 2. Please follow up with neurology on outpatient basis in the next 2 weeks. Return to emergency department for significant neurological deficits including but not limited to weakness of extremities, facial droop, difficulties with speech, visual field loss different from what you normally have with migraines. 3. 29-year-old male with history of migraine headaches was admitted to the hospital for neurological symptoms of headache, visual disturbances of the right eye, weakness of the right arm that all resolved prior to admission. Patient reported that she does have migraine headaches but this headache is different due to the Heaviness in the right arm. Patient with NIH at 0 on admission, no significant past medical history aside from colitis and migraines. Patient reports that she gets headaches usually about once a week and that they last for about 24 hr. Patient also reported pain and tenderness in the right temporal area during her headaches. CT head brain without contrast in the emergency department was negative for any acute findings, chest x-ray unremarkable. Labs unremarkable. Obtained ESR and CRP to help rule out temporal arteritis, both were negative. Patient remained at baseline mental sta tus with no focal neurological deficits on admission. Patient has done well. MRI stroke protocol negative for any acute findings, echo within normal limits. Suspect complex migraines rather than TIA given patient's history/physical/risk factors. The patient be discharged with aspirin 81 mg p.o. daily. Diet: Regular Activity: Ad sawyer Followup: Allen Faust MD [ASSOCIATE-ACTIVE - CAN ADMIT] - Time spent managing pt's care (in minutes): 55
--- NOTE | 2019-12-09 19:08 | RAD REPORT ---
EXAM DESCRIPTION: MRI - Brain W/Wo Cont - 12/09/2019 6:42 pm CLINICAL HISTORY: tia Headache, drowsiness, CVA symptomology COMPARISON: MRA Head Wo Cont dated 12/09/2019; Ct Stroke Brain Wo Cont dated 12/08/2019; MRA Neck W/Wo Cont dated 12/09/2019 TECHNIQUE: Multi-sequence, multiplanar MR imaging of the brain was performed with contrast. FINDINGS: No intracranial hemorrhage, hydrocephalus, or extra-axial fluid collection. No edema or sh ift of midline structures. No intracranial mass. DWI is negative for acute CVA. The midline structures are normally formed. Mastoid air cells and paranasal sinuses are clear. Post-contrast images show no abnormal enhancement to suggest tumor or infection. IMPRESSION: No acute or concerning intracranial abnormalities. No pathologic post-contrast enhancement suspected.
--- NOTE | 2019-12-09 19:11 | RAD REPORT ---
EXAM DESCRIPTION: MRI - MRA Head Wo Cont - 12/09/2019 6:42 pm CLINICAL HISTORY: tia CVA COMPARISON: <Comparisons> FINDINGS: 3D noncontrast [id number] MR angiography of the [place] was performed. No aneurysm, flow-limiting stenosis or vascular malformation is seen. Forward flow seen in the verteb ral arteries. The visualized dural venous sinuses appear patent. IMPRESSION: No significant flow abnormality of the [place] is identified.
--- NOTE | 2019-12-09 19:14 | RAD REPORT ---
EXAM DESCRIPTION: MRI - MRA Neck W/Wo Cont - 12/09/2019 6:42 pm CLINICAL HISTORY: tia Headache, drowsiness, CVA symptomology COMPARISON: No comparisons FINDINGS: Contrast enhance 2D [id number] MR angiography of the neck vessels was performed. A left aortic arch is seen with normal branching pattern of the great vessels. Both common carotid arteries and subclavian arteries are patent. No significant internal carotid artery stenosis. Antegrade flow seen in both vertebral arteries. IMPRESSION: No significant flow abnormality of the neck vessels identified.
--- NOTE | 2019-12-09 19:54 | CON ---
Consultation was called because of possible TIA. History Of Present Illness: Ms. Sykes is a 29-year-old patient with history of dyslipidemia and untreated migraine of several years, who developed pain in the right head and subsequent right a rm heaviness. She felt something was wrong with her right shoulder joints. The symptoms progressed over a few hours and then she came to [facility]. By the time of her arrival when a stroke code was called, the patient's disturbance, which per the hospital note has including a visual change as well, was noted to have some drift, but then it quickly resolved. The patient had a CT scan that was negative. NIH Stroke Scale was reported to be 0. She has history of colitis and is to be fully worked up for that, but that is not yet complete. She said that at the time of the onset of her symptoms, she took a small aspirin and believes that ma y have contributed to help the resolution of her symptoms. Past Medical History: As indicated. Family History: Noncontributory. Social History: She drinks caffeinated beverages. Denies alcohol, but may have used drugs in the or st. Allergies: CIPROFLOXACIN. Review of Systems: She denies any recent fevers, chills, nausea, vomiting, myalgias, arthralgias, headache, weight calles e, rash, psychiatric complaints, gastrointestinal, genitourinary issues except she has had some issue s with loose stools in the past and is being worked up. Physical Examination: Vital Signs: Blood pressure 108/68, pulse 62, respiratory rate 16, temperature 98.6. Oxygen saturat ion 99% on room air, weight 135 pounds, height 5 feet 3 inches, BMI 23.9. General: Ms. Sykes is resting in bed. She has no acute distress. HEENT: She is normocephalic, atraumatic. Sclerae anicteric. Oropharynx pink and moist. Neck: Supple. Chest: Clear. Heart: Regular. Extremities: Show no edema. No clubbing, cyanosis. Neurological: She is alert and oriented to situation, place, and person. Follows commands appropria tely. She has no cranial nerve deficits from 2 through 12. She has no motor deficits in the upper a nd lower extremities proximally and distally is 5/5 strength. Sensory exam intact to light touch for temperature in arms and legs. Coordination intact in upper and lower Extremities: Bilaterally refl exes 2+ in upper and lower extremities. Gait good stance, stride, and arm swing. Laboratory Studies: Complete blood count with differential is completely normal. Basic metabolic pa allen also unremarkable except for slightly elevated glucose of 129, calcium after hydration was slight ly low at 8.3, total cholesterol elevated to 219, LDL cholesterol elevated to 143. She said in the p ast she was told of a high cholesterol, but never took medications. Urinalysis shows a trace of bloo d. She did say she was just coming up for her menstrual cycle. Assessment: Ms. Sykes is a 29-year-old patient who has a history of migraine and possible complicate d migraine versus transient ischemic attack. She did take an aspirin and she isolates to resolve the right lower extremity weakness and she denied any numbness, loss of visual change, which may occur w ith her migraines, which are mostly right temporal region. Chest x-ray, no abnormalities. She does have brain MRI and echocardiogram of the heart pending. Plan: The patient may be discharged home once the study is done. To go home on high-dose statin bethel ng with folic acid and aspirin 81 mg daily. She should maintain a headache diary and hydrate a facet s of water daily. Follow up with [facility], may be put on migraine prophylaxis once she is seen in clinic and may Ubrelvy For her abortive headache treatment and 50 mg as needed, and again discharged home today once workup is c omplete. MEL/ALTAGRACIA Voice ID: [id number] Report ID: [id number]
[2019-12-09 21:01] VITALS: BP 113/67
== END 2019-12-09 20:41 | disposition home or self-care (01) | DRG 103 ==
LOC: ER 20:32 → ERHOLD 22:47 → 2ND 23:24 → OBSVTOIN 12-09 08:07
PROVIDERS: ADMIT Hospitalist; ATTEND Hospitalist
DX: G43.809 Other migraine, not intractable, without status migrainosus (principal); R53.1 Weakness; H53.9 Unspecified visual disturbance; Z88.1 Allergy status to other antibiotic agents; Z20.828 Contact with and (suspected) exposure to other viral communicable diseases
CPT/HCPCS: 36415; 70450; 70544; 70549; 70553; 71045; 80048; 80061; 81003; 81025; 82947; 84132; 84439; 84443; 85025; 85610; 85652; 85730; 86140; 93005; 93306; 97112; 97161; 99285; A9577; G0378; J1650; J2405; U0002

== ENCOUNTER 2019-12-29 09:07 | Emergency (ER) | payer OTHER, SELFPAY ==
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
[2019-12-29 10:40] VITALS: BP 114/75; TEMP 97.8; O2SAT 99
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
== END 2019-12-29 10:29 | disposition home or self-care (01) ==
LOC: ER 09:07
DX: S16.1XXA Strain of muscle, fascia and tendon at neck level, initial encounter (principal); S29.012A Strain of muscle and tendon of back wall of thorax, initial encounter; V49.40XA Driver injured in collision with unspecified motor vehicles in traffic accident, initial encounter
CPT/HCPCS: 72040; 72070; 99283

== ENCOUNTER 2020-03-22 03:03 | Emergency (ER) | payer OTHER, SELFPAY ==
[2020-03-22 04:16] LABS: Absolute Lymphocytes (CBC) 1.7 K/uL (0.7-4.9); Basophils % 0.6 % (0-1.3); Hematocrit 37.8 % (36.0-45.0); Lymphocytes % 21.2 % (15.3-44.8); MPV 9.3 fL (7.6-11.3); RBC Red Blood Cell Count 4.28 M/uL (3.86-4.86)
[2020-03-22] MEDS ORDERED: ONDANSETRON 4 MG/2 ML VIAL ONE (04:20)
[2020-03-22] MEDS ORDERED: NA CHLORIDE 0.9% 1,000 ML ONE (04:20)
[2020-03-22 04:42] LABS: ALT/SGPT 24 U/L (12-78); AST/SGOT 14 U/L (15-37); Albumin 3.6 g/dL (3.4-5.0); Alkaline Phosphatase 60 U/L (45-117); BUN Blood Urea Nitrogen 11 mg/dL (7-18); Bicarbonate 28 mmol/L (21-32); Bilirubin Direct < 0.1 mg/dL (0-0.2); Bilirubin Total 0.3 mg/dL (0.2-1.0); Glucose Level 94 mg/dL (74-106); Lipase 120 U/L (73-393); Potassium 3.7 mmol/L (3.5-5.1); Sodium Level 144 mmol/L (136-145)
[2020-03-22 05:08] LABS: Urine Blood NEGATIVE (NEG); Urine Glucose TRACE (NEG); Urine Protein TRACE (NEG); Urine Specific Gravity 1.015 (1.005-1.030)
[2020-03-22] MEDS ORDERED: CEFTRIAXONE/SWI 1gm 1 GM/10 ML SYR ONE (05:30)
--- NOTE | 2020-03-22 07:03 | EDPHYS ---
Physician Documentation [facility] Name: Tara Sykes Age: 29 yrs Sex: Female : 1990 Arrival Date: 03/22/2020 Time: 03:04 Bed 8 Private MD: TIEN Physician Wally Parish HPI: 03/22 03:59 This 29 yrs old Female presents to ER via Ambulatory with complaints of mh7 Vomiting. 03:59 The patient presents to the emergency department with nausea, that is moderate, mh7 vomiting, that is intermittent, abdominal pain, of the left upper quadrant. Onset: The symptoms/episode began/occurred today. Possible causes: antibiotics, Macrobid. The symptoms are aggravated by food , The symptoms are alleviated by nothing. Associated signs and symptoms: Pertinent negatives: anorexia, belching, constipation, diarrhea, dysuria, fever, flatulence, GI bleeding, hematuria, vaginal discharge. Severity of symptoms: At their worst the symptoms were moderate today, in the emergency department the symptoms have improved moderately. Historical: - Allergies: 03:32 Cipro; dm5 - Immunization history:: Adult Immunizations up to date. - Social history:: Smoking status: unknown. ROS: 03:59 Constitutional: Negative for fever, chills, and weight loss, Eyes: Negative for injury, mh7 pain, redness, and discharge, ENT: Negative for injury, pain, and discharge, Neck: Negative for injury, pain, and swelling, Cardiovascular: Negative for chest pain, palpitations, and edema, Respiratory: Negative for shortness of breath, cough, wheezing, and pleuritic chest pain, Back: Negative for injury and pain, : Negative for injury, bleeding, discharge, and swelling, MS/Extremity: Negative for injury and deformity, Skin: Negative for injury, rash, and discoloration, Neuro: Negative for headache, weakness, numbness, tingling, and seizure, Psych: Negative for depression, anxiety, suicide ideation, homicidal ideation, and hallucinations, Allergy/Immunology: Negative for hives, rash, and allergies, Endocrine: Negative for neck swelling, polydipsia, polyuria, polyphagia, and marked weight changes, Hematologic/Lymphatic: Negative for swollen nodes, abnormal bleeding, and unusual bruising. Exam: 03:59 Constitutional: This is a well developed, well nourished patient who is awake, alert, mh7 and in no acute distress. Head/Face: Normocephalic, atraumatic. Eyes: Pupils equal round and reactive to light, extra-ocular motions intact. Lids and lashes normal. Conjunctiva and sclera are non-icteric and not injected. Cornea within normal limits. Periorbital areas with no swelling, redness, or edema. Neck: Trachea midline, no thyromegaly or masses palpated, and no cervical lymphadenopathy. Supple, full range of motion without nuchal rigidity, or vertebral point tenderness. No Meningismus. Chest/axilla: Normal chest wall appearance and motion. Nontender with no deformity. No lesions are appreciated. Cardiovascular: Regular rate and rhythm with a normal S1 and S2. No gallops, murmurs, or rubs. Normal PMI, no JVD. No pulse deficits. Respiratory: Lungs have equal breath sounds bilaterally, clear to auscultation and percussion. No rales, rhonchi or wheezes noted. No increased work of breathing, no retractions or nasal flaring. Abdomen/GI: Soft, non-tender, with normal bowel sounds. No distension or tympany. No guarding or rebound. No evidence of tenderness throughout. Back: No spinal tenderness. No costovertebral tenderness. Full range of motion. Skin: Warm, dry with normal turgor. Normal color with no rashes, no lesions, and no evidence of cellulitis. MS/ Extremity: Pulses equal, no cyanosis. Neurovascular intact. Full, normal range of motion. Neuro: Awake and alert, GCS 15, oriented to person, place, time, and situation. Cranial nerves II-XII grossly intact. Motor strength 5/5 in all extremities. Sensory grossly intact. Cerebellar exam normal. Normal gait. Psych: Awake, alert, with orientation to person, place and time. Behavior, mood, and affect are within normal limits. Vital Signs: 03:29 BP 109 / 76; Pulse 66; Resp 20; Temp 97.6; Pulse Ox 98% on R/A; Weight 58.06 kg (R); dm5 Height 5 ft. 3 in. (160.02 cm); Pain 4/10; 05:20 BP 101 / 69; Pulse 69; Resp 18; Pulse Ox 98% ; ea 06:26 BP 99 / 59; Pulse 95; Resp 18; Pulse Ox 99% on R/A; ea 07:20 BP 97 / 70; Pulse 70; Resp 18; Pulse Ox 99% ; ea 03:29 Body Mass Index 22.67 (58.06 kg, 160.02 cm) dm5 MDM: 06:44 Patient medically screened. randal 06:49 Differential diagnosis: pancreatitis, diverticulitis, viral gastroenteritis, randal gastroenteritis. Data reviewed: vital signs, nurses notes, lab test result(s), radiologic studies, CT scan. 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 Test interpretation: by ED physician or midlevel provider:. Counseling: I had a detailed discussion with the patient and/or guardian regarding: the historical points, exam findings, and any diagnostic results supporting the discharge/admit diagnosis, lab results, radiology results, the need for outpatient follow up, for definitive care, a non destructive testing engineer. 03/22 03:47 Order name: Basic Metabolic Panel; Complete Time: 04:44 [facility] 03/22 03:47 Order name: CBC with Diff; Complete Time: 04:44 03/22 03:47 Order name: Hepatic Function; Complete Time: 04:44 03/22 03:47 Order name: Lipase; Complete Time: 04:44 03/22 04:54 Order name: Urine --Ancillary (enter results); Complete Time: 05:11 03/22 04:54 Order name: Urine Dipstick--Ancillary (enter results); Complete Time: 05:11 03/22 03:47 Order name: IV Saline Lock; Complete Time: 04:00 03/22 03:47 Order name: Labs collected and sent; Complete Time: 04:00 03/22 04:48 Order name: CT Abd/Pelvis - IV Contrast Only [facility] 03/22 03:47 Order name: Urine Dipstick-Ancillary (obtain specimen); Complete Time: 04:42 [facility] 03/22 03:47 Order name: Urine Test (obtain specimen); Complete Time: 04:42 7 Administered Medications: 04:05 Drug: NS 0.9% 1000 ml Route: IV; Rate: 1000 ml; Site: right antecubital; rv 05:00 Follow up: Response: No adverse reaction; IV Status: Completed infusion; IV Intake: ea 1000ml 04:05 Drug: Zofran (Ondansetron) 4 mg Route: IVP; Site: right antecubital; rv 05:00 Follow up: Response: No adverse reaction ea 05:19 Drug: Rocephin - (cefTRIAXone) 1 grams Route: IVPB; Infused Over: 30 mins; Site: right ea antecubital; 06:00 Follow up: Response: No adverse reaction; IV Status: Completed infusion ea 07:17 Drug: Bactrim (160 mg-800 mg (DS) 1 tablet Route: PO; ea 07:19 Follow up: Response: Medication administered at discharge. ea Disposition: 03/22/20 07:02 Discharged to Home. Impression: Urinary tract infection, site not specified, Abdominal tenderness, Vomiting. - Condition is Stable. - Discharge Instructions: Abdominal Pain, Adult, Nausea and Vomiting, Adult, Urinary Tract Infection, Adult, Nausea and Vomiting, Adult, [id number]. - Prescriptions for Bentyl 20 mg Oral Tablet - take 1 tablet by ORAL route every 6 hours As needed; 20 tablet. Pepcid 20 mg Oral Tablet - take 1 tablet by ORAL route every 12 hours for 10 days; 20 tablet. Bactrim DS 800- 160 mg Oral Tablet - take 1 tablet by ORAL route every 12 hours for 7 days; 14 tablet. Zofran 4 mg Oral Tablet - take 1 tablet by ORAL route every 12 hours As needed; 20 tablet. - Medication Reconciliation Form, Thank You Letter, Antibiotic Education, Prescription Opioid Use form. - Follow up: Private Physician; When: 2 - 3 days; Reason: Recheck today's complaints, Continuance of care, Re-evaluation by your physician. Follow up: Dez Bowman MD; When: 2 - 3 days; Reason: Recheck today's complaints, Re-evaluation by your physician. - Problem is new. - Symptoms have improved. Signatures: Dispatcher [employer] EDMS Diane Mejia, RN RN [id number] Wally Parish MD MD cha Antunez, Elena, Kwabena Soler RN, ea, RN RN rv Holmes, Maurice, MD MD [email or web address] Corrections: (The following items were deleted from the chart) 07:21 07:02 03/22/2020 07:02 Discharged to Home. Impression: Urinary tract infection, site ea not specified; Abdominal tenderness; Vomiting. Condition is Stable. Forms are Medication Reconciliation Form, Thank You Letter, Antibiotic Education, Prescription Opioid Use. Follow up: Private Physician; When: 2 - 3 days; Reason: Recheck today's complaints, Continuance of care, Re-evaluation by your physician. Follow up: Dez Bowman; When: 2 - 3 days; Reason: Recheck today's complaints, Re-evaluation by your physician. Problem is new. Symptoms have improved. randal
--- NOTE | 2020-03-22 07:03 | ER ---
Nurse's Notes [facility] Name: Tara Sykes Age: 29 yrs Sex: Female : 1990 Arrival Date: 03/22/2020 Time: 03:04 Bed 8 Private MD: Diagnosis: Urinary tract infection, site not specified;Abdominal tenderness;Vomiting Presentation: 03/22 03:29 Chief complaint: Patient states: took medication for UTI, macrobid and phenazopyridine, dm5 at approximately 0100. Pt states that she started vomiting about 10 minutes afterward. Pt states the vomited 4 times and has LUQ pain rated at 4/10. Coronavirus screen: Client denies travel out of the [place] in the last 14 days. nausea, vomiting. Client presents with at least one sign or symptom that may indicate coronavirus-19. Standard/surgical mask placed on the client. Ebola Screen: Patient negative for fever greater than or equal to 101.5 degrees Fahrenheit, and additional compatible Ebola Virus Disease symptoms Patient denies exposure to infectious person. Patient denies travel to an Ebola-affected area in the 21 days before illness onset. No symptoms or risks identified at this time. Initial Sepsis Screen: Does the patient meet any 2 criteria? No. Patient's initial sepsis screen is negative. Does the patient have a suspected source of infection? Yes: Dysuria/Frequency/Urgency/UTI. Risk Assessment: Do you want to hurt yourself or someone else? Patient reports no desire to harm self or others. Onset of symptoms was March 22, 2020. 03:29 Method Of Arrival: Ambulatory dm5 03:29 Acuity: NIKKI 3 dm5 Triage Assessment: 04:01 General: Appears comfortable, Behavior is calm, cooperative. Pain: Complains of pain in rv abdomen. Neuro: Level of Consciousness is awake, alert, obeys commands, Oriented to person, place, time, situation. Cardiovascular: Patient's skin is warm and dry. Respiratory: Airway is patent Respiratory effort is even, unlabored. GI: Reports upper abdominal pain. Derm: Skin is intact. Historical: - Allergies: 03:32 Cipro; dm5 - Immunization history:: Adult Immunizations up to date. - Social history:: Smoking status: unknown. Screenin:01 Abuse screen: Denies threats or abuse. Denies injuries from another. Nutritional rv screening: No deficits noted. Tuberculosis screening: No symptoms or risk factors identified. Fall Risk None identified. Assessment: 05:20 Reassessment: Patient and/or family updated on plan of care and expected duration. Pain ea level reassessed. Patient is alert, oriented x 3, equal unlabored respirations, skin warm/dry/pink. 06:25 Reassessment: Patient and/or family updated on plan of care and expected duration. Pain ea level reassessed. Patient is alert, oriented x 3, equal unlabored respirations, skin warm/dry/pink. 07:20 Reassessment: Patient and/or family updated on plan of care and expected duration. Pain ea level reassessed. Patient is alert, oriented x 3, equal unlabored respirations, skin warm/dry/pink. Discharge instruction given to patient, verbalized the understanding of instruction. Pt left ED ambulatory tolerating well. Vital Signs: 03:29 BP 109 / 76; Pulse 66; Resp 20; Temp 97.6; Pulse Ox 98% on R/A; Weight 58.06 kg (R); dm5 Height 5 ft. 3 in. (160.02 cm); Pain 4/10; 05:20 BP 101 / 69; Pulse 69; Resp 18; Pulse Ox 98% ; ea 06:26 BP 99 / 59; Pulse 95; Resp 18; Pulse Ox 99% on R/A; ea 07:20 BP 97 / 70; Pulse 70; Resp 18; Pulse Ox 99% ; ea 03:29 Body Mass Index 22.67 (58.06 kg, 160.02 cm) dm5 ED Course: 03:04 Patient arrived in ED. cl3 03:18 Kwabena Villeda, CECE is Primary Nurse. rv 03:22 Chau Clya MD is Attending Physician. mh7 03:32 Triage completed. dm5 03:55 Inserted saline lock: 20 gauge in right antecubital area, using aseptic technique. rv Blood collected. 03:55 Initial lab(s) drawn, by me, sent to lab. rv 04:01 Patient has correct armband on for positive identification. Bed in low position. Call rv light in reach. Side rails up X 1. Pulse ox on. NIBP on. 04:02 Arm band placed on right wrist. Patient placed in the treatment room, on a stretcher, rv Patient notified of wait time. 05:18 CT Abd/Pelvis - IV Contrast Only In Process Unspecified. EDMS 06:44 Attending Physician role handed off by Chau Clay MD [facility] 06:44 Wally Parish MD is Attending Physician. randal 07:01 Dez Bowman MD is Referral Physician. randal 07:19 No provider procedures requiring assistance completed. IV discontinued, intact, ea bleeding controlled, No redness/swelling at site. Pressure dressing applied. Administered Medications: 04:05 Drug: NS 0.9% 1000 ml Route: IV; Rate: 1000 ml; Site: right antecubital; rv 05:00 Follow up: Response: No adverse reaction; IV Status: Completed infusion; IV Intake: ea 1000ml 04:05 Drug: Zofran (Ondansetron) 4 mg Route: IVP; Site: right antecubital; rv 05:00 Follow up: Response: No adverse reaction ea 05:19 Drug: Rocephin - (cefTRIAXone) 1 grams Route: IVPB; Infused Over: 30 mins; Site: right ea antecubital; 06:00 Follow up: Response: No adverse reaction; IV Status: Completed infusion ea 07:17 Drug: Bactrim (160 mg-800 mg (DS) 1 tablet Route: PO; ea 07:19 Follow up: Response: Medication administered at discharge. ea Intake: 05:00 IV: 1000ml; Total: 1000ml. ea Outcome: 07:02 Discharge ordered by . [facility] 07:19 Discharged to home ambulatory. ea 07:19 Condition: stable 07:19 Discharge instructions given to patient, Instructed on discharge instructions, follow up and referral plans. medication usage, Demonstrated understanding of instructions, follow-up care, medications, Prescriptions given X 1. 07:21 Patient left the ED. ea Signatures: Dispatcher [employer] EDMS Diane Mejia RN RN dm5 Wally Parish MD MD cha Antunez, Elena RN Kwabena Soler ea, RN RN rv Lewis, Charde cl3 Chau Clay MD MD 7
[2020-03-22 07:26] VITALS: TEMP 97.6
[2020-03-22 07:28] VITALS: O2SAT 99
[2020-03-22 07:29] VITALS: BP 97/70
[2020-03-22] MEDS ORDERED: SMZ./TMP. 800/160 MG TABLET ONE (07:30)
--- NOTE | 2020-03-22 17:48 | RAD REPORT ---
EXAM DESCRIPTION: CT Abdomen and Pelvis With Intravenous Contrast CLINICAL HISTORY: The patient is 29 years old and is Female; ABD PAIN vomiting after ingesting medic ation for UTI TECHNIQUE: Axial computed tomography images of the abdomen and pelvis with intravenous contrast. S agittal and coronal reformatted images were created and reviewed. This CT exam was performed using one or more of the following dose reduction techniques: automated exposure control, adjustment of t he mA and/or kV according to patient size, and/or use of iterative reconstruction technique. COMPARISON: CT abdomen pelvis with contrast September 13, 2019. FINDINGS: Lung bases: Unremarkable. No mass. No consolidation. ABDOMEN: Liver: Unremarkable. No mass. Gallbladder and bile ducts: Unremarkable. No calcified stones. No ductal dilation. Pancreas: No findings to suggest acute pancreatitis. No mass visualized. No ductal dilation. Spleen: Unremarkable. No splenomegaly. Adrenals: Unremarkable. No mass. Kidneys and ureters: No ureter stone. No solid mass. No hydronephrosis. Stomach and bowel: No bowel dilatation or obstruction. No bowel wall thickening. PELVIS: Appendix: The visualized appendix is normal. No pericecal inflammation to suggest acute appendici tis. Bladder: Bladder is nearly empty. No stones. Reproductive: Retroverted uterus. Anterior subserosal fibroid again noted right-sided ICD in plac e. ABDOMEN and PELVIS: Intraperitoneal space: Small amount of free fluid in the cul-de-sac, likely physiologic. No free air. Bones/joints: Scattered bone islands in the pelvis and proximal femora. Bilateral L5 spondylolysi s again noted with grade 1 L5-S1 spondylolisthesis. L4-5 disc protrusion. No acute fracture. No dislocation. Soft tissues: Unremarkable. Vasculature: Unremarkable. No abdominal aortic aneurysm. Lymph nodes: No pathologically enlarged lymph nodes. IMPRESSION: 1. No acute obstructive or inflammatory process identified. Normal appendix. 2. Additional non-emergent findings as above. Electronically signed by: Yi Werner MD 03/22/2020 5:32 AM PHYSICS TECHNICAL OFFICER Due to temporary technical issues with the PACS/Fluency reporting system, reports are being signed by the in house radiologists without review as a courtesy to insure prompt reporting. The interpreting radiologist is fully responsible for the content of the report
== END 2020-03-22 07:21 | disposition home or self-care (01) ==
LOC: ER 03:03
DX: N39.0 Urinary tract infection, site not specified (principal); R10.819 Abdominal tenderness, unspecified site; Z88.1 Allergy status to other antibiotic agents
CPT/HCPCS: 36415; 74177; 80048; 80076; 81003; 81025; 83690; 85025; 96361; 96365; 96375; 99284; J0696; J2405; J7030; Q9967

== ENCOUNTER 2020-04-14 14:03 | Emergency (ER) | payer OTHER, SELFPAY ==
[2020-04-14 15:11] LABS: Absolute Lymphocytes (CBC) 1.1 K/uL (0.7-4.9); Basophils % 0.7 % (0-1.3); Hematocrit 38.7 % (36.0-45.0); Lymphocytes % 24.8 % (15.3-44.8); MPV 8.5 fL (7.6-11.3); RBC Red Blood Cell Count 4.41 M/uL (3.86-4.86)
[2020-04-14 15:32] LABS: ALT/SGPT 20 U/L (12-78); AST/SGOT 11 U/L (15-37); Albumin 3.4 g/dL (3.4-5.0); Alkaline Phosphatase 59 U/L (45-117); BUN Blood Urea Nitrogen 9 mg/dL (7-18); Bicarbonate 30 mmol/L (21-32); Bilirubin Total 0.3 mg/dL (0.2-1.0); Glucose Level 91 mg/dL (74-106); Potassium 3.7 mmol/L (3.5-5.1); Sodium Level 144 mmol/L (136-145)
[2020-04-14] MEDS ORDERED: NA CHLORIDE 0.9% 1,000 ML ONE (15:39)
[2020-04-14] MEDS ORDERED: FAMOTIDINE 20 MG/2 ML VIAL IV ONE (15:39)
[2020-04-14 15:45] LABS: Urine Blood NEGATIVE (NEG); Urine Glucose NEGATIVE (NEG); Urine Protein NEGATIVE (NEG); Urine pH 6.5 (5.0-7.0)
[2020-04-14 16:23] LABS: SARS-COV-2 RT PCR POSITIVE (NEGATIVE)
--- NOTE | 2020-04-14 16:32 | ER ---
Nurse's Notes [facility] Name: Tara Sykes Age: 29 yrs Sex: Female : 1990 Arrival Date: 04/14/2020 Time: 14:07 Bed 16 Private MD: Diagnosis: Coronavirus infection, unspecified Presentation: 04/14 14:09 Chief complaint: Patient states: "On I was starting to get sick and yesterday jd3 it got worse to the point were I was very dizzy. I saw my primary who gave me meclozine. it seemed to help at first, but in the evening it got worse again. today the nausea better, but I am feeling dizzy and weak again.". Coronavirus screen: fatigue, muscle pain. Ebola Screen: Patient negative for fever greater than or equal to 101.5 degrees Fahrenheit, and additional compatible Ebola Virus Disease symptoms. Initial Sepsis Screen: Does the patient meet any 2 criteria? No. Patient's initial sepsis screen is negative. Does the patient have a suspected source of infection? No. Patient's initial sepsis screen is negative. Risk Assessment: Do you want to hurt yourself or someone else? Patient reports no desire to harm self or others. Onset of symptoms was April 11, 2020. 14:09 Method Of Arrival: Ambulatory jd3 14:09 Acuity: NIKKI 3 jd3 Triage Assessment: 17:39 General: Appears in no apparent distress. Behavior is calm. 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 - Social history:: Smoking status: Patient denies any tobacco usage or history of. Patient uses street drugs, marijuana. Screenin:06 Abuse screen: Denies threats or abuse. Denies injuries from another. Nutritional iw screening: No deficits noted. Tuberculosis screening: No symptoms or risk factors identified. Fall Risk None identified. Assessment: 14:50 General: Appears in no apparent distress. Behavior is calm, cooperative. Pain: Denies iw pain. Neuro: Level of Consciousness is awake, alert, obeys commands, Oriented to person, place, time, situation, Reports dizziness. Cardiovascular: Patient's skin is warm and dry. Respiratory: Respiratory effort is even, unlabored, Respiratory pattern is regular, symmetrical. GI: Reports nausea. Derm: Skin is intact, is healthy with good turgor. Musculoskeletal: Range of motion: intact in all extremities. 15:29 Reassessment: Patient appears in no apparent distress at this time. Patient and/or iw family updated on plan of care and expected duration. Pain level reassessed. Patient is alert, oriented x 3, equal unlabored respirations, skin warm/dry/pink. 16:06 Reassessment: Patient appears in no apparent distress at this time. Patient and/or iw family updated on plan of care and expected duration. Pain level reassessed. Patient is alert, oriented x 3, equal unlabored respirations, skin warm/dry/pink. 16:48 Reassessment: Patient appears in no apparent distress at this time. IV fluids infusing. iw Vital Signs: 14:13 BP 107 / 72; Pulse 76; Resp 17 S; Temp 98.0(TE); Pulse Ox 98% on R/A; Weight 57.15 kg jd3 (R); Height 5 ft. 4 in. (162.56 cm) (R); Pain 0/10; 15:14 BP 100 / 66; Pulse 70; Resp 16; Temp 97.9(O); Pulse Ox 98% on R/A; mh5 15:19 BP 93 / 59 Supine; Pulse 57; Resp 16; Pulse Ox 98% on R/A; mh5 15:21 BP 107 / 77 Sitting; Pulse 65; Resp 17; Pulse Ox 100% on R/A; mh5 15:23 BP 102 / 79 Standing; Pulse 66; Resp 17; Pulse Ox 100% on R/A; mh5 14:13 Body Mass Index 21.63 (57.15 kg, 162.56 cm) jd3 ED Course: 14:07 Patient arrived in ED. ds1 14:12 Triage completed. jd3 14:13 Arm band placed on. jd3 14:15 Rao Klein NP is PHCP. pm1 14:15 Brad Alvarenga MD is Attending Physician. pm1 14:32 Taye, Vanita, RN is Primary Nurse. iw 15:09 Initial lab(s) drawn, by al, sent to lab. Urine collected: clean catch specimen, clear. [facility] Inserted saline lock: 22 gauge in left antecubital area, using aseptic technique. Blood collected. 15:10 Patient has correct armband on for positive identification. Bed in low position. Call [facility] light in reach. Side rails up X 1. Warm blanket given. Pulse ox on. NIBP on. 15:16 Urine --Ancillary (enter results) Sent. [facility] 15:16 Urine Dipstick--Ancillary (enter results) Sent. [facility] 15:17 CMP Sent. [facility] 15:17 CBC with Diff Sent. [facility] 15:17 Strep Sent. [facility] 17:39 No provider procedures requiring assistance completed. IV discontinued, intact, iw bleeding controlled, No redness/swelling at site. Pressure dressing applied. Administered Medications: 15:20 Drug: NS 0.9% 1000 ml Route: IV; Rate: 1000 ml; Site: left antecubital; 17:20 Follow up: IV Status: Completed infusion 15:20 Drug: Pepcid 20 mg Route: IVP; Site: left antecubital; 16:20 Follow up: Response: No adverse reaction Outcome: 16:32 Discharge ordered by MD. pm1 17:39 Discharged to home ambulatory. 17:39 Condition: good 17:39 Discharge instructions given to patient, Instructed on discharge instructions, follow up and referral plans. Demonstrated understanding of instructions, follow-up care. 17:40 Patient left the ED. Signatures: Aylin Gore ds1 Vanita Kothari RN RN Rao Klein COKE CRANE OPERATOR COKE CRANE OPERATOR pm1 Renetta Dominguez 5 Butch Tejeda RN RN jd3 Corrections: (The following items were deleted from the chart) 15:19 15:17 CORONAVIRUS+MR.LAB.BRZ drawn and sent. [facility] EDMS
--- NOTE | 2020-04-14 16:33 | EDPHYS ---
Physician Documentation [facility] Name: Tara Sykes Age: 29 yrs Sex: Female : 1990 Arrival Date: 04/14/2020 Time: 14:07 Bed 16 Private MD: ED Physician Brad Alvarenga HPI: 04/14 14:31 This 29 yrs old Female presents to ER via Ambulatory with complaints of pm1 Generalized Weakness. 14:31 The patient presents to the emergency department with weakness of the entire body, pm1 generalized weakness. 14:31 Onset: The symptoms/episode began/occurred 3 day(s) ago. Context: occurred at home. pm1 Associated signs and symptoms: Pertinent positives: dizziness, nausea, that has resolved, Pertinent negatives: fever, headache. Severity of symptoms: in the emergency department the symptoms have improved. Current symptoms: generalized weakness. The patient has been recently seen by a physician: the patient's primary care provider, with similar presenting complaints, was given a prescription for an antiemetic, meclizine and zofran. Patient reports feeling ill and nauseated onset . She has had decreased appetite and is forcing herself to eat and drink. She felt nauseated and dizzy yesterday and saw her PCP for the same complaint and was prescribed meclizine and Zofran. The medications help. 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 5 students tested positive there recently and no one is wearing masks in class. 14:31 Patient denies any abdominal pain. 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 - Social history:: Smoking status: Patient denies any tobacco usage or history of. Patient uses street drugs, marijuana. ROS: 14:31 Eyes: Negative for injury, pain, redness, and discharge, ENT: Negative for injury, pm1 pain, and discharge, Neck: Negative for injury, pain, and swelling, Cardiovascular: Negative for chest pain, palpitations, and edema, Respiratory: Negative for shortness of breath, cough, wheezing, and pleuritic chest pain. 14:31 Back: Negative for injury and pain, : Negative for injury, bleeding, discharge, and swelling, MS/Extremity: Negative for injury and deformity, Skin: Negative for injury, rash, and discoloration. 14:31 Constitutional: Positive for poor PO intake, generalized weakness. 14:31 Abdomen/GI: Positive for nausea, Negative for abdominal pain, vomiting, diarrhea, constipation. 14:31 Neuro: Positive for dizziness, Negative for headache, numbness, tingling, focal weakness. Exam: 14:31 Constitutional: This is a well developed, well nourished patient who is awake, alert, pm1 and in no acute distress. Head/Face: Normocephalic, atraumatic. 14:31 Back: No spinal tenderness. No costovertebral tenderness. Full range of motion. Skin: Warm, dry with normal turgor. Normal color with no rashes, no lesions, and no evidence of cellulitis. MS/ Extremity: Pulses equal, no cyanosis. Neurovascular intact. Full, normal range of motion. 14:31 Cardiovascular: Exam negative for acute changes, Rate: normal, Rhythm: regular, Pulses: no pulse deficits are appreciated, Edema: is not appreciated. 14:31 Respiratory: Exam negative for acute changes, respiratory distress, shortness of breath. 14:31 Neuro: Exam negative for acute changes, Orientation: is normal, Mentation: is normal, Motor: is normal, moves all fours. Vital Signs: 14:13 BP 107 / 72; Pulse 76; Resp 17 S; Temp 98.0(TE); Pulse Ox 98% on R/A; Weight 57.15 kg jd3 (R); Height 5 ft. 4 in. (162.56 cm) (R); Pain 0/10; 15:14 BP 100 / 66; Pulse 70; Resp 16; Temp 97.9(O); Pulse Ox 98% on R/A; mh5 15:19 BP 93 / 59 Supine; Pulse 57; Resp 16; Pulse Ox 98% on R/A; mh5 15:21 BP 107 / 77 Sitting; Pulse 65; Resp 17; Pulse Ox 100% on R/A; mh5 15:23 BP 102 / 79 Standing; Pulse 66; Resp 17; Pulse Ox 100% on R/A; mh5 14:13 Body Mass Index 21.63 (57.15 kg, 162.56 cm) jd3 MDM: 14:19 Patient medically screened. pm1 16:31 Data reviewed: vital signs. pm1 16:31 Data interpreted: Pulse oximetry: on room air is 100 %. Interpretation: normal. pm1 16:31 Counseling: I had a detailed discussion with the patient and/or guardian regarding: the pm1 historical points, exam findings, and any diagnostic results supporting the discharge/admit diagnosis, lab results, the need for outpatient follow up, to return to the emergency department if symptoms worsen or persist or if there are any questions or concerns that arise at home. 04/14 14:31 Order name: Strep; Complete Time: 15:26 pm1 04/14 14:31 Order name: CBC with Diff; Complete Time: 15:22 pm 04/14 14:31 Order name: CMP; Complete Time: 15:56 pm 04/14 15:15 Order name: Urine Dipstick--Ancillary (enter results); Complete Time: 15:56 04/14 14:31 Order name: Droplet/Contact Precautions; Complete Time: 15:17 pm04/14 14:31 Order name: Labs collected and sent; Complete Time: 15:17 pm04/14 14:31 Order name: Orthostatic Blood Pressure; Complete Time: 15:28 pm04/14 15:15 Order name: Urine --Ancillary (enter results); Complete Time: 15:56 04/14 15:26 Order name: Throat Culture [facility] 04/14 16:23 Order name: COVID-19/FLU A+B; Complete Time: 16:40 [facility] 04/14 14:31 Order name: Urine Dipstick-Ancillary (obtain specimen); Complete Time: 15:16 pm04/14 14:31 Order name: Urine Test (obtain specimen); Complete Time: 15:16 pm1 Administered Medications: 15:20 Drug: NS 0.9% 1000 ml Route: IV; Rate: 1000 ml; Site: left antecubital; iw 17:20 Follow up: IV Status: Completed infusion iw 15:20 Drug: Pepcid 20 mg Route: IVP; Site: left antecubital; iw 16:20 Follow up: Response: No adverse reaction iw Disposition: 04/15 15:16 Co-signature as Attending Physician, Brad Alvarenga MD. rn Disposition: 04/14/20 16:32 Discharged to Home. Impression: Coronavirus infection, unspecified. - Condition is Stable. - Discharge Instructions: COVID-19. - Medication Reconciliation Form, Thank You Letter, Antibiotic Education, Prescription Opioid Use form. - Follow up: Emergency Department; When: As needed; Reason: Worsening of condition. Follow up: Private Physician; When: 2 - 3 days; Reason: Recheck today's complaints, Continuance of care, Re-evaluation by your physician. - Problem is new. - Symptoms have improved. Signatures: Dispatcher [employer] EDMS Vanita Kothari, RN Brad Warren MD MD rn Rao Klein, WELDER APPRENTICE GAS WELDER APPRENTICE GAS pm1 Butch Tejeda, RN RN jd3 Corrections: (The following items were deleted from the chart) 04/14 15:12 14:32 Influenza Screen (A \T\ B)+BA.LAB.BRZ ordered. EDMS EDMS 15:19 14:32 CORONAVIRUS+MR.LAB.BRZ ordered. EDMS EDMS 17:40 16:32 04/14/2020 16:32 Discharged to Home. Impression: Coronavirus infection, iw unspecified. Condition is Stable. Forms are Medication Reconciliation Form, Thank You Letter, Antibiotic Education, Prescription Opioid Use. Follow up: Emergency Department; When: As needed; Reason: Worsening of condition. Follow up: Private Physician; When: 2 - 3 days; Reason: Recheck today's complaints, Continuance of care, Re-evaluation by your physician. Problem is new. Symptoms have improved. pm1
[2020-04-14 17:55] VITALS: TEMP 97.9
[2020-04-14 17:57] VITALS: O2SAT 100
[2020-04-14 17:59] VITALS: BP 102/79
== END 2020-04-14 17:40 | disposition home or self-care (01) ==
LOC: ER 14:03
DX: U07.1 COVID-19 (principal); K21.9 Gastro-esophageal reflux disease without esophagitis; Z88.1 Allergy status to other antibiotic agents
CPT/HCPCS: 0240U; 36415; 80053; 81003; 81025; 85025; 87070; 87081; 96361; 96374; 99284; J7030

== ENCOUNTER 2021-03-06 13:14 | Emergency (ER) | payer OTHER, SELFPAY ==
[2021-03-06 15:26] LABS: SARS-COV-2 RT PCR POSITIVE (NEGATIVE)
[2021-03-06] MEDS ORDERED: ONDANSETRON 4 MG (ODT) TAB ONE (16:18)
--- NOTE | 2021-03-06 16:37 | ER ---
Nurse's Notes [facility] Name: Tara Sykes Age: 30 yrs Sex: Female : 1990 Arrival Date: 03/06/2021 Time: 13:16 Bed DIS14 Private MD: Diagnosis: SARS-associated coronavirus as the cause of diseases classified elsewhere Presentation: 03/06 13:25 Chief complaint: Patient states: 1. Body aches, no appetite, sore throat, NGUYỄN, slight ll1 cough since Thursday. Vomited once Thursday. No known fever. Was exposed to covid positive person Thursday. 2. Small amount of vaginal discharge with foul odor for 2 days. Coronavirus screen: Vaccine status: Patient reports being unvaccinated. Client denies travel out of the [place] in the last 14 days. chills, congestion, cough unrelated to allergies, fatigue, headache, muscle pain, nausea, runny nose, shaking with chills, sore throat, vomiting. Client presents with at least one sign or symptom that may indicate coronavirus-19. Standard/surgical mask placed on the client. Ebola Screen: Patient denies travel to an Ebola-affected area in the 21 days before illness onset. Initial Sepsis Screen: Does the patient meet any 2 criteria? HR > 90 bpm. No. Patient's initial sepsis screen is negative. Does the patient have a suspected source of infection? Yes: Productive cough/pneumonia. Risk Assessment: Do you want to hurt yourself or someone else? Patient reports no desire to harm self or others. Onset of symptoms was March 04, 2021. 13:25 Method Of Arrival: Ambulatory ll1 13:25 Acuity: NIKKI 3 ll1 Historical: - Allergies: 13:28 Cipro; ll1 - PMHx: 13:28 GERD; ll1 - PSHx: 13:28 None; ll1 - Immunization history:: Client reports having NOT received the Covid vaccine. Flu vaccine is not up to date. - Social history:: Smoking status: Patient denies any tobacco usage or history of. - Family history:: not pertinent. - Hospitalizations: : No recent hospitalization is reported. Screenin:52 Abuse screen: Denies threats or abuse. Denies injuries from another. Nutritional ss screening: No deficits noted. Tuberculosis screening: Never had TB. Fall Risk None identified. Assessment: 16:52 Reassessment: Patient appears in no apparent distress at this time. Patient and/or ss family updated on plan of care and expected duration. Pain level reassessed. Patient is alert, oriented x 3, equal unlabored respirations, skin warm/dry/pink. Patient states feeling better. Patient states symptoms have improved. Vital Signs: 13:25 BP 113 / 67; Pulse 111; Resp 17; Temp 98.8; Pulse Ox 98% ; Weight 58.97 kg; Height 5 ll1 ft. 4 in. (162.56 cm); Pain 8/10; 13:25 Body Mass Index 22.31 (58.97 kg, 162.56 cm) ll1 ED Course: 13:16 Patient arrived in ED. as 13:25 Arm band placed on. ll1 13:28 Triage completed. ll1 15:53 Brad Alvarenga MD is Attending Physician. rn 16:17 Mandy Alegria RN is Primary Nurse. ss 16:52 Patient has correct armband on for positive identification. Bed in low position. Call ss light in reach. 16:52 No provider procedures requiring assistance completed. Patient did not have IV access ss during this emergency room visit. Administered Medications: 16:21 Drug: Ondansetron 4 mg Route: PO; ss 16:51 Follow up: Response: No adverse reaction; Marked relief of symptoms; Nausea is decreasedss Outcome: 16:37 Discharge ordered by . rn 16:52 Discharged to home ambulatory. ss 16:52 Condition: good 16:52 Discharge instructions given to patient, family, Instructed on discharge instructions, follow up and referral plans. medication usage, Demonstrated understanding of instructions, follow-up care, medications, Prescriptions given X 1. 16:53 Patient left the ED. ss Signatures: Kristi Dominguez as Brad Alvarenga MD MD rn Smirch, Shelby, RN RN Sherly Oh RN RN ll1 Corrections: (The following items were deleted from the chart) 13:30 13:25 Chief complaint: Patient states: Body aches, no appetite, sore throat, NGUYỄN, slight ll1 cough since Thursday. Vomited once Thursday. No known fever. Was exposed to covid positive person Thursday. ll1
--- NOTE | 2021-03-06 16:37 | EDPHYS ---
Physician Documentation [facility] Name: Tara Sykes Age: 30 yrs Sex: Female : 1990 Arrival Date: 03/06/2021 Time: 13:16 Bed DIS14 Private MD: ED Physician Brad Alvarenga HPI: 03/06 16:31 This 30 yrs old Female presents to ER via Ambulatory with complaints of Flu rn Symptoms. 16:31 The patient or guardian reports cough, that is intermittent, described as mild. Onset: rn The symptoms/episode began/occurred 3 day(s) ago. Severity of symptoms: At their worst the symptoms were mild, in the emergency department the symptoms are unchanged. Modifying factors: The symptoms are alleviated by nothing, the symptoms are aggravated by nothing. Associated signs and symptoms: Pertinent positives: fever, rhinorrhea, sore throat. The patient has not experienced similar symptoms in the past. The patient has not recently seen a physician. Patient reports a few days of congestion/sore throat/cough/myalgias. Similar to when she had Covid a year ago. Denies any shortness of breath. Denies any urinary symptoms. Reports exposed to someone who is Covid positive this weekend.. Historical: - Allergies: 13:28 Cipro; ll1 - PMHx: 13:28 GERD; ll1 - PSHx: 13:28 None; ll1 - Immunization history:: Client reports having NOT received the Covid vaccine. Flu vaccine is not up to date. - Social history:: Smoking status: Patient denies any tobacco usage or history of. - Family history:: not pertinent. - Hospitalizations: : No recent hospitalization is reported. ROS: 16:31 Constitutional: Positive for fever and chills Eyes: Negative for injury, pain, redness, rn and discharge, ENT: Positive for nasal congestion and sore throat Neck: Negative for injury, pain, and swelling, Cardiovascular: Negative for chest pain, palpitations, and edema, Respiratory: Positive for cough Abdomen/GI: Positive for nausea : Negative for injury, bleeding, discharge, and swelling, MS/Extremity: Negative for injury and deformity, Skin: Negative for injury, rash, and discoloration, Neuro: Positive for generalized weakness and headache Exam: 16:31 Constitutional: This is a well developed, well nourished patient who is awake, alert, rn and in no acute distress. Head/Face: Normocephalic, atraumatic. Eyes: Periorbital areas with no swelling, redness, or edema. ENT: Dry mucous membranes, no stridor Neck: No Meningismus. Cardiovascular: Tachycardic, regular. Respiratory: No increased work of breathing, no retractions or nasal flaring. Skin: Warm, dry MS/ Extremity: Pulses equal, no cyanosis. Neuro: Awake and alert, GCS 15 Vital Signs: 13:25 BP 113 / 67; Pulse 111; Resp 17; Temp 98.8; Pulse Ox 98% ; Weight 58.97 kg; Height 5 ll1 ft. 4 in. (162.56 cm); Pain 8/10; 13:25 Body Mass Index 22.31 (58.97 kg, 162.56 cm) ll1 MDM: 15:53 Patient medically screened. rn 16:31 Differential Diagnosis: Bronchitis Influenza Upper Respiratory Infection Sinusitis rn Pharyngitis Viral Syndrome. Data reviewed: vital signs, nurses notes, lab test result(s), and as a result, I will discharge patient. Data interpreted: Pulse oximetry: on room air is 98 %. Interpretation: normal. Counseling: I had a detailed discussion with the patient and/or guardian regarding: the historical points, exam findings, and any diagnostic results supporting the discharge/admit diagnosis, lab results, the need for outpatient follow up, to return to the emergency department if symptoms worsen or persist or if there are any questions or concerns that arise at home. Special discussion: I discussed with the patient/guardian in detail that at this point there is no indication for admission to the hospital. It is understood, however, that if the symptoms persist or worsen the patient needs to return immediately for re-evaluation. ED course: Patient Covid positive. No oxygen requirement. Feels identical to last time when had Covid. Flu negative. Offered Regeneron infusion, patient declines states will return if worsens. Will send home with as needed Zofran for nausea and return precautions.. 03/06 13:31 Order name: Strep; Complete Time: 15:54 ll1 03/06 14:00 Order name: COVID-19/FLU A+B; Complete Time: 15:54 EDMS 03/06 14:09 Order name: Throat Culture EDSC 03/06 13:31 Order name: Droplet/Contact Precautions; Complete Time: 15:54 ll1 12 13:31 Order name: Labs collected and sent; Complete Time: 15:54 ll1 03/06 13:31 Order name: O2 Per Protocol; Complete Time: 15:54 ll1 Administered Medications: 16:21 Drug: Ondansetron 4 mg Route: PO; ss 16:51 Follow up: Response: No adverse reaction; Marked relief of symptoms; Nausea is decreasedss Disposition Summary: 03/06/21 16:37 Discharge Ordered Location: Home rn Problem: new rn Symptoms: are unchanged rn Condition: Stable rn Diagnosis - SARS-associated coronavirus as the cause of diseases classified elsewhere rn Followup: rn - With: Private Physician - When: As needed - Reason: Recheck today's complaints, Re-evaluation by your physician Discharge Instructions: - Discharge Summary Sheet rn - COVID-19 rn - Things to Know about the COVID-19 Pandemic - [facility] rn - 10 Things You Can Do to Manage Your COVID-19 Symptoms at Home - [facility] rn Forms: - Medication Reconciliation Form rn - Thank You Letter rn - 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 EDMS EDMS 14:00 13:34 Influenza Screen (A ordered. EDMS EDMS
[2021-03-06 16:58] VITALS: BP 113/67; TEMP 98.8; O2SAT 98
== END 2021-03-06 16:53 | disposition home or self-care (01) ==
LOC: ER 13:14
DX: U07.1 COVID-19 (principal); K21.9 Gastro-esophageal reflux disease without esophagitis
CPT/HCPCS: 0240U; 87070; 87081; 99283

== ENCOUNTER 2022-11-13 11:27 | Emergency (ER) | payer OTHER, SELFPAY ==
--- OUTSIDE RECORDS SUMMARY | 2022-11-13 11:29 | XMS REPORT | Continuity of Care Document ---
:1990 Author Organization [facility] t Address [address] [address] Care Team Providers Name Role Phone JASMIN Attending Clinician Unavailable JASMIN Admitting Clinician Unavailable Problems This patient has no known problems. Allergies, Adverse Reactions, Alerts This patient has no known allergies or adverse reactions. Medications This patient has no known medications. Procedures This patient has no known procedures. Encounters Start End Encounter Admission Attending Care Care Encounter Source Date/Time Date/Time Type Type Clinicians Facility Department ID 2021-10-04 2021-10-04 Outpatient CATHI ESPINOZA [id number] 03:17:00 03:17:00 CHARAN 0715 [facility] Program Results This patient has no known results.
--- NOTE | 2022-11-13 11:50 | ER ---
Nurse's Notes [facility] Name: Tara Sykes Age: 32 yrs Sex: Female : 1990 Arrival Date: 11/13/2022 Time: 11:27 Bed 11 Private MD: Diagnosis: Otitis media, unspecified, left ear Presentation: 11/13 11:43 Chief complaint: Patient states: "I'M PRETTY SURE I HAVE COVID. MY EARS POP EVERYTIME I bp BURP AND I BURP A LOT.". Coronavirus screen: Client presents with at least one sign or symptom that may indicate coronavirus-19. Standard/surgical mask placed on the client. Ebola Screen: No symptoms or risks identified at this time. Initial Sepsis Screen: Does the patient meet any 2 criteria? No. Patient's initial sepsis screen is negative. Does the patient have a suspected source of infection? No. Patient's initial sepsis screen is negative. Risk Assessment: Do you want to hurt yourself or someone else? Patient reports no desire to harm self or others. Onset of symptoms is unknown. 11:43 Method Of Arrival: Ambulatory bp 11:43 Acuity: NIKKI 4 bp Triage Assessment: 12:06 General: Appears in no apparent distress. ill, Behavior is calm, cooperative, bp appropriate for age. Pain: Complains of pain in left ear. EENT: Reports pain in left ear. Historical: - Allergies: 11:45 Cipro; bp - PMHx: 11:45 GERD; bp - Immunization history:: Adult Immunizations up to date. - Social history:: Smoking status: Patient denies any tobacco usage or history of. Screenin:07 [facility] ED Fall Risk Assessment (Adult) History of falling in the last 3 months, bp including since admission No falls in past 3 months (0 pts). Abuse screen: Denies threats or abuse. Denies injuries from another. Nutritional screening: No deficits noted. Tuberculosis screening: No symptoms or risk factors identified. Vital Signs: 11:43 BP 113 / 83; Pulse 81; Resp 16; Temp 97.7; Pulse Ox 100% ; Weight 63.5 kg; Height 5 ft. bp 2 in. ; 11:43 Body Mass Index 25.61 (63.50 kg, 157.48 cm) bp ED Course: 11:30 Patient arrived in ED. mg5 11:34 Brown, Marianna, PA-C [facility] sb4 11:34 Wally Parish MD is Attending Physician. sb4 11:45 Triage completed. bp 11:45 Arm band placed on. bp 11:46 Patrick Hawkins, RN is Primary Nurse. bp 12:07 Patient has correct armband on for positive identification. Bed in low position. Call bp light in reach. 12:07 No provider procedures requiring assistance completed. Patient did not have IV access bp during this emergency room visit. Administered Medications: No medications were administered Medication: 12:07 VIS not applicable for this client. bp Outcome: 11:50 Discharge ordered by MD. sb4 12:07 Discharged to home ambulatory. bp 12:07 Condition: stable 12:07 Discharge instructions given to patient, Instructed on discharge instructions, follow up and referral plans. medication usage, Demonstrated understanding of instructions, follow-up care, medications, Prescriptions given X 1. 12:09 Discharge ordered by MD. sb4 12:10 Patient left the ED. bp Signatures: Patrick Hawkins RN RN bp Marianna Payton PA-C PA-C sb4 Nimisha Law mg5
--- NOTE | 2022-11-13 11:50 | EDPHYS ---
Physician Documentation [facility] Name: Tara Sykes Age: 32 yrs Sex: Female : 1990 Arrival Date: 11/13/2022 Time: 11:27 Bed 11 Private MD: ED Physician Wally Parish HPI: 11/13 12:05 This 32 yrs old Female presents to ER via Ambulatory with complaints of Ear sb4 Pain, Possible Covid. 12:05 The patient presents with pain, that is acute. The complaints affect the left ear. sb4 Onset: The symptoms/episode began/occurred yesterday. Modifying factors: The symptoms are alleviated by nothing, the symptoms are aggravated by burping. Associated signs and symptoms: Pertinent positives: sore throat, cough, rhinorrhea, sinus trouble, Pertinent negatives: fever, lightheadedness, tinnitus, vertigo. The patient has experienced a previous episode. Patient presents with symptoms secondary to COVID but she states that she also has ear pain and she is worried about infection. Historical: - Allergies: 11:45 Cipro; bp - PMHx: 11:45 GERD; bp - Immunization history:: Adult Immunizations up to date. - Social history:: Smoking status: Patient denies any tobacco usage or history of. ROS: 12:05 Constitutional: Negative for fever, chills, and weight loss. sb4 12:05 ENT: Positive for ear pain, rhinorrhea, sinus congestion, sore throat. 12:05 Respiratory: Positive for cough. 12:05 Neuro: Positive for headache. 12:05 All other systems are negative. Exam: 12:05 Constitutional: This is a well developed, well nourished patient who is awake, alert, sb4 and in no acute distress. Head/Face: Normocephalic, atraumatic. Eyes: Extra-ocular motions intact. Periorbital areas with no swelling, redness, or edema. Skin: Warm, dry with normal turgor. Normal color with no rashes, no lesions, and no evidence of cellulitis. 12:05 ENT: Ear canal(s): erythema, that is minimal, bilaterally, TM's: bulging, on the left, erythema. Vital Signs: 11:43 BP 113 / 83; Pulse 81; Resp 16; Temp 97.7; Pulse Ox 100% ; Weight 63.5 kg; Height 5 ft. bp 2 in. ; 11:43 Body Mass Index 25.61 (63.50 kg, 157.48 cm) bp MDM: 11:35 Patient medically screened. sb4 12:05 Differential diagnosis: otitis media, otitis externa, ruptured TM, foreign body, acute sb4 otalgia, cerumen impaction. Data reviewed: vital signs, nurses notes, and as a result, I will discharge patient. Test considered but Not performed: Labs: Patient declined COVID and flu swab. Counseling: I had a detailed discussion with the patient and/or guardian regarding the historical points, exam findings, and any diagnostic results supporting the discharge/admit diagnosis, to return to the emergency department if symptoms worsen or persist or if there are any questions or concerns that arise at home. Administered Medications: No medications were administered Disposition Summary: 11/13/22 12:09 Discharge Ordered Location: Home(11/13/22 12:09) sb4 Problem: new(11/13/22 12:09) sb4 Symptoms: are unchanged(11/13/22 12:09) sb4 Condition: Stable(11/13/22 12:09) sb4 Diagnosis - Otitis media, unspecified, left ear(11/13/22 12:09) sb4 Followup: sb4 - With: Private Physician - When: As needed - Reason: Recheck today's complaints, Continuance of care, Re-evaluation by your physician Forms: - Medication Reconciliation Form sb4 - Thank You Letter sb4 - Antibiotic Education sb4 - Prescription Opioid Use sb4 - Patient Portal Instructions sb4 - Leadership Thank You Letter sb4 Signatures: Patrick Hawkins, RN RN Marianna Hernandez PA-C PA-C sb4 Corrections: (The following items were deleted from the chart) 11:51 11:50 Other otitis externa, left ear sb4 sb4 12: 11:50 Home sb4 sb4 12: 11:50 new sb4 sb4 12: 11:50 are unchanged sb4 sb4 12: 11:50 Stable sb4 sb4 12:09 11:50 SARS-associated coronavirus as the cause of diseases classified elsewhere sb4 sb4 12: 11:51 Otitis media, unspecified, left ear sb4 sb4
[2022-11-13 12:15] VITALS: BP 113/83; TEMP 97.7; O2SAT 100
== END 2022-11-13 12:10 | disposition home or self-care (01) ==
LOC: ER 11:27
DX: H66.92 Otitis media, unspecified, left ear (principal); R05.9 Cough, unspecified; Z88.1 Allergy status to other antibiotic agents
CPT/HCPCS: 99283

== ENCOUNTER 2022-12-02 15:57 | Emergency (ER) | payer OTHER ==
--- OUTSIDE RECORDS SUMMARY | 2022-12-02 16:00 | XMS REPORT | Continuity of Care Document ---
:[address] [facility] t Address [address] [place] [id number] Care Team Providers Name Role Phone JASMIN [...] ID 2021-10-04 2021-10-04 Outpatient CATHI ESPINOZA [id number] 03:17:00 03:17:00 CHARAN 0715 [facility] Program Results This patient has no known results.
[2022-12-02] MEDS ORDERED: DIAZEPAM 5 MG TABLET ONE (16:24)
[2022-12-02] MEDS ORDERED: KETOROLAC 30 MG/ML INJ ONE (16:24)
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
[2022-12-02 17:28] VITALS: O2SAT 100
[2022-12-02 17:29] VITALS: BP 100/65
== END 2022-12-02 17:24 | disposition home or self-care (01) ==
LOC: ER 15:57
DX: M54.2 Cervicalgia (principal); V49.40XA Driver injured in collision with unspecified motor vehicles in traffic accident, initial encounter; Z88.1 Allergy status to other antibiotic agents
CPT/HCPCS: 71046; 96372; 99284

== ENCOUNTER → 2023-04-24 | Emergency (ER) | payer OTHER ==
--- OUTSIDE RECORDS SUMMARY | 2023-04-24 14:17 | XMS REPORT | Continuity of Care Document ---
Author Name Unknown Address [address] [place] [address] thconnect Address [address] [place] [address] [place] [address] Care Team Providers Care Cooker Loader Name Role Phone JASMIN Attending Clinician Unavailable JASMIN Admitting Clinician Unavailable Encounters Start Date/Time End Date/Time Encounter Type Admission Type Attending Clinicians Care Facility Care Department Encounter ID Source 2021-10-04 03:17:00 2021-10-04 03:17:00 Outpatient CATHI FARRAR [facility] [id number] [facility]
[2023-04-24 15:03] LABS: Absolute Lymphocytes (CBC) 1.4 K/uL (0.7-4.9); Hematocrit 38.7 % (36.0-45.0); Lymphocytes % 24.9 % (15.3-44.8); MCV 85.8 fL (80-100); MPV 8.2 fL (7.6-11.3); Platelets 235 thou/uL (152-406); RBC Red Blood Cell Count 4.51 M/uL (3.86-4.86)
[2023-04-24 15:08] LABS: Specific Gravity 1.002 (1.005-1.030)
[2023-04-24 15:09] LABS: Specific Gravity < 1.005 (1.005-1.030); Urine Bacteria None Seen /HPF (<20); Urine Bilirubin NEGATIVE (Negative); Urine Blood Negative (Negative); Urine Clarity Turbid (Clear); Urine Color Colorless (Yellow); Urine Glucose NEGATIVE (Negative); Urine Protein NEGATIVE (Negative); Urine RBC <5 /HPF (None Seen); Urine Urobilinogen Normal (Normal)
[2023-04-24 15:20] LABS: BUN Blood Urea Nitrogen 7 mg/dL (7-18); Bicarbonate 29 mEq/L (21-32); Glomerular Filtration Rate 108 ml/min (=/>90); Glucose Level 102 mg/dL (74-106); NT PRO-BNP 15 pg/mL (<125); Potassium 3.8 mEq/L (3.5-5.1); Sodium Level 140 mEq/L (136-145)
[2023-04-24 15:28] LABS: Troponin High Sensitivity < 3.0 pg/mL (<58.9)
--- NOTE | 2023-04-24 16:47 | RAD REPORT ---
EXAM DESCRIPTION: Charles Single View04/24/2023 3:48 pm CLINICAL HISTORY: palpitation COMPARISON: 2022 FINDINGS: The lungs appear clear of acute infiltrate. The heart is normal size IMPRESSION: No acute abnormalities displayed
--- NOTE | 2023-04-24 16:47 | RAD REPORT ---
EXAM DESCRIPTION: CT - Chest For Pe Angio - 04/24/2023 4:24 pm CLINICAL HISTORY: Chest pain COMPARISON: None. TECHNIQUE: Dynamically enhanced axial 3 mm thick images of the chest were obtained during administra tion of 100 mL Isovue 370 IV contrast. Coronal and oblique reconstruction images were generated and r eviewed. Exam utilizes a protocol for optimal evaluation of pulmonary arterial tree. Maximum intensity projections 3D imaging was utilized All CT scans are performed using dose optimization technique as appropriate and may include automated exposure control or mA/KV adjustment according to patient size. FINDINGS: Suboptimal opacification pulmonary arteries. No gross pulmonary embolus is seen A thoracic aortic aneurysm is not noted. A pleural effusion is not seen. A pericardial effusion is not seen. A lung consolidation is not present. IMPRESSION: No gross pulmonary embolus seen
--- NOTE | 2023-04-24 16:57 | ER ---
Nurse's Notes [facility] Name: Tara Sykes Age: 32 yrs Sex: Female : 1990 Arrival Date: 04/24/2023 Time: 14:15 Bed 12 Private MD: Diagnosis: Palpitations Presentation: 04/24 14:31 Chief complaint: Patient states: pt was at home having her lunch break from work and as6 then felt like her heart was racing. pt tried to relax and calm down. pt reports having several episodes of heart palpations and one episode of vomiting. Coronavirus screen: At this time, the client does not indicate any symptoms associated with coronavirus-19. Ebola Screen: Patient denies travel to an Ebola-affected area in the 21 days before illness onset. Initial Sepsis Screen: Does the patient meet any 2 criteria? No. Patient's initial sepsis screen is negative. Does the patient have a suspected source of infection? No. Patient's initial sepsis screen is negative. Risk Assessment: Do you want to hurt yourself or someone else? Patient reports no desire to harm self or others. Onset of symptoms was April 24, 2023. 14:31 Acuity: NIKKI 3 as6 14:31 Method Of Arrival: Ambulatory as6 Triage Assessment: 14:34 General: Appears in no apparent distress. Behavior is cooperative, anxious. Pain: as6 Denies pain. EENT: No deficits noted. No signs and/or symptoms were reported regarding the EENT system. Neuro: Level of Consciousness is awake, alert, obeys commands, Oriented to person, place, time, situation. Cardiovascular: Reports palpitations, Denies chest pain, shortness of breath. Respiratory: Respiratory effort is even, unlabored, Respiratory pattern is regular, symmetrical, Breath sounds are clear bilaterally. GI: Reports vomiting, Patient currently denies abdominal pain. : No deficits noted. No signs and/or symptoms were reported regarding the genitourinary system. Derm: Skin is intact, is healthy with good turgor. Musculoskeletal: Circulation, motion, and sensation intact. FURNITURE SHAMPOOER: 14:30 LMP 03/2023, unknown as6 Historical: - Allergies: 14:31 Cipro; as6 - PMHx: 14:31 GERD; Hypercholesterolemia; as6 - PSHx: 14:31 None; as6 - Immunization history:: Adult Immunizations up to date. - Social history:: Smoking status: Patient denies any tobacco usage or history of. - Family history:: not pertinent. - Hospitalizations: : No recent hospitalization is reported. Screenin:35 [facility] ED Fall Risk Assessment (Adult) Score/Fall Risk Level 0 - 2 = Low Risk. Abuse as6 screen: Denies threats or abuse. Denies injuries from another. Nutritional screening: No deficits noted. Tuberculosis screening: No symptoms or risk factors identified. Assessment: 14:35 General: see triage assessment . as6 14:54 General: pt refused COVID and flu swabs. provider notified . as6 15:58 Reassessment: Patient appears in no apparent distress at this time. Patient and/or as6 family updated on plan of care and expected duration. Pain level reassessed. Patient is alert, oriented x 3, equal unlabored respirations, skin warm/dry/pink. 16:49 Reassessment: Patient appears in no apparent distress at this time. Patient and/or as6 family updated on plan of care and expected duration. Pain level reassessed. Patient is alert, oriented x 3, equal unlabored respirations, skin warm/dry/pink. Vital Signs: 14:30 BP 137 / 94; Pulse 83; Resp 20 S; Temp 98.2(O); Pulse Ox 99% on R/A; Weight 58.97 kg as6 (R); Height 5 ft. 3 in. (R); Pain 0/10; 16:00 BP 105 / 83; Pulse 73; Resp 17 S; Pulse Ox 98% on R/A; as6 17:08 BP 113 / 77; Pulse 72; Resp 20; Pulse Ox 100% ; as6 14:30 Body Mass Index 23.03 (58.97 kg, 160.02 cm) as6 14:30 Pain Scale: Adult as6 ED Course: 14:19 Patient arrived in ED. im 14:19 Marianna Payton PA-C is PHCP. sb4 14:19 Brad Alvarenga MD is Attending Physician. sb4 14:30 Russel Hairston RN is Primary Nurse. as6 14:30 Arm band placed on. as6 14:34 Triage completed. as6 14:35 Placed in gown. Bed in low position. Call light in reach. Side rails up X 1. Client as6 placed on continuous cardiac and pulse oximetry monitoring. NIBP monitoring applied. 14:54 Inserted saline lock: 20 gauge in left antecubital area, using aseptic technique. Blood as6 collected. 14:55 Test, Urine Sent. as6 14:55 Urinalysis w/ reflexes Sent. as6 14:55 Strep Sent. as6 14:55 Basic Metabolic Panel Sent. as6 14:55 CBC with Diff Sent. as6 14:55 NT PRO-BNP Sent. as6 14:55 Troponin HS Sent. as6 15:50 XRAY Chest (1 view) In Process Unspecified. EDMS 16:26 CT Chest For PE Angio In Process Unspecified. EDMS 16:57 Keith Burgos MD is Referral Physician. rn 17:09 Provided Education on: follow up with cardiology . as6 17:09 No provider procedures requiring assistance completed. IV discontinued, intact, as6 bleeding controlled, No redness/swelling at site. Pressure dressing applied. Administered Medications: No medications were administered Medication: 14:35 VIS not applicable for this client. as6 Outcome: 16:57 Discharge ordered by . rn 17:09 Discharged to home ambulatory, as6 17:09 Condition: stable 17:09 Discharge instructions given to patient, Instructed on discharge instructions, follow up and referral plans. Demonstrated understanding of instructions, follow-up care, 17:09 Patient left the ED. as6 Signatures: Dispatcher [employer] Brad Long MD MD rn Slawson, Ashby, RN RN as6 Marianna Payton PALewis PALewis wang4 Alicia Jacobs
--- NOTE | 2023-04-24 16:57 | EDPHYS ---
Physician Documentation [facility] Name: Tara Sykes Age: 32 yrs Sex: Female : 1990 Arrival Date: 04/24/2023 Time: 14:15 Bed 12 Private MD: ED Physician Brad Alvarenga HPI: 04/24 15:21 This 32 yrs old Female presents to ER via Ambulatory with complaints of rn Palpitations, Vomiting. 15:21 The patient presents with a history of heart racing. Context: The symptoms occur at rn rest. Onset: The symptoms/episode began/occurred this morning. Duration: The patient or guardian reports multiple episodes, that are intermittent. Modifying factors: The symptoms are aggravated by nothing. The symptoms are alleviated by nothing. Severity of symptoms: At their worst the symptoms were moderate in the emergency department the symptoms have improved. The patient has not experienced similar symptoms in the past. Patient reports palpitations, intermittent, last for about a minute or 2 since this morning. Reports dizziness and lightheadedness, subjective fever and chills. No diarrhea. No chest pain. No abdominal pain. Denies and states has IUD. No urinary symptoms. No sick contacts. Currently feels much better.. 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 - Social history:: Smoking status: Patient denies any tobacco usage or history of. - Family history:: not pertinent. - Hospitalizations: : No recent hospitalization is reported. ROS: 15:21 Constitutional: Positive for subjective fever and chills Eyes: Negative for injury, rn pain, redness, and discharge, Cardiovascular: Positive for palpitations, negative for chest pain Respiratory: Negative for shortness of breath. Abdomen/GI: Negative for abdominal pain or blood in stool MS/Extremity: Negative for injury and deformity, Skin: Negative for injury, rash, and discoloration, Neuro: Positive for headache and generalized weakness Exam: 15:21 Constitutional: This is a well developed, well nourished patient who is awake, alert, rn tearful Head/Face: Normocephalic, atraumatic. ENT: Moist mucous membranes, no stridor Cardiovascular: Regular rate and rhythm . No pulse deficits. Respiratory: No increased work of breathing, no retractions or nasal flaring. Abdomen/GI: Soft, nontender Skin: Warm, dry MS/ Extremity: Pulses equal, no cyanosis Neuro: Awake and alert, GCS 15 Vital Signs: 14:30 BP 137 / 94; Pulse 83; Resp 20 S; Temp 98.2(O); Pulse Ox 99% on R/A; Weight 58.97 kg as6 (R); Height 5 ft. 3 in. (R); Pain 0/10; 16:00 BP 105 / 83; Pulse 73; Resp 17 S; Pulse Ox 98% on R/A; as6 17:08 BP 113 / 77; Pulse 72; Resp 20; Pulse Ox 100% ; as6 14:30 Body Mass Index 23.03 (58.97 kg, 160.02 cm) as6 14:30 Pain Scale: Adult as6 MDM: 14:20 Patient medically screened. rn 16:51 Differential diagnosis: arrythmia, dehydration, stress disorder. Data reviewed: vital rn signs. Data reviewed: nurses notes, lab test result(s), EKG, radiologic studies, CT scan, plain films, and as a result, I will discharge patient. Counseling: I had a detailed discussion with the patient and/or guardian regarding the historical points, exam findings, and any diagnostic results supporting the discharge/admit diagnosis, lab results, radiology results, the need for further work-up and treatment in the hospital. Response to treatment: the patient's symptoms have markedly improved after treatment, and as a result, I will discharge patient. 16:56 Special discussion: I discussed with the patient/guardian in detail that at this point rn there is no indication for admission to the hospital. It is understood, however, that if the symptoms persist or worsen the patient needs to return immediately for re-evaluation. Based on the history and exam findings, there is no indication for further emergent testing or inpatient evaluation. 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 ED course: Patient states has not happened since arrival here. Normal vital signs. No ischemia on EKG. No arrhythmia noted. I have personally reviewed all of the results, including but not limited to blood tests and imaging deemed necessary to safely discharge this patient at this time. All results given to and printed out for patient. I personally went over all the results with the patient and answered all questions. Patient will follow-up with PCP and or specialist as discussed. Return precautions given and understood.. 04/24 14:28 Order name: Basic Metabolic Panel; Complete Time: 16:51 rn 04/24 14:28 Order name: CBC with Diff; Complete Time: 15:24 rn 04/24 14:28 Order name: NT PRO-BNP; Complete Time: 16:51 rn 04/24 14:28 Order name: Troponin HS; Complete Time: 16:51 rn 04/24 14:28 Order name: Strep rn 04/24 14:28 Order name: Test, Urine; Complete Time: 15:24 rn 04/24 14:28 Order name: Urinalysis w/ reflexes; Complete Time: 15:24 rn 04/24 15:26 Order name: Throat Culture EDMS 04/24 14:28 Order name: XRAY Chest (1 view); Complete Time: 16:51 rn 04/24 15:24 Order name: CT Chest For PE Angio; Complete Time: 16:51 rn 04/24 14:28 Order name: EKG; Complete Time: 14:29 rn 04/24 14:28 Order name: Cardiac monitoring; Complete Time: 14:55 rn 04/24 14:28 Order name: EKG - Nurse/Tech; Complete Time: 14:55 rn 04/24 14:28 Order name: IV Saline Lock; Complete Time: 14:55 rn 04/24 14:28 Order name: Labs collected and sent; Complete Time: 14:55 rn 04/24 14:28 Order name: O2 Per Protocol; Complete Time: 14:55 rn 04/24 14:28 Order name: O2 Sat Monitoring; Complete Time: 14:55 rn Administered Medications: No medications were administered Disposition Summary: 04/24/23 16:57 Discharge Ordered Notes: Location: Home rn Problem: new rn Symptoms: have improved rn Condition: Stable rn Diagnosis - Palpitations rn Followup: rn - With: Keith Burgos MD - When: As needed - Reason: Recheck today's complaints, Re-evaluation by your physician Discharge Instructions: - Discharge Summary Sheet rn - Palpitations rn Forms: - Medication Reconciliation Form rn - Thank You Letter rn - Antibiotic rn l and d - Prescription Opioid Use rn - Patient Portal Instructions rn - Leadership Thank You Letter rn Signatures: Dispatcher [employer] Brad Long MD MD rn Slawson, Ashby, RN RN as6
[2023-04-24 17:47] VITALS: BP 113/77; TEMP 98.2; O2SAT 100
--- NOTE | 2023-04-27 15:09 | EKG ---
Test Date: 2023-04-24 Test Time: 14:44:20 [place]: MEASUREMENT RESULTS: Intervals: Rate: 70 WA: 140 QRSD: 68 QT: 372 QTc: 401 [place]: P: 60 WA: 140 QRS: 42 T: 72 INTERPRETIVE STATEMENTS: Normal sinus rhythm with sinus arrhythmia Low voltage QRS Borderline ECG Compared to ECG 12/08/2019 21:16:09 Low QRS voltage now present Electronically Signed On 04-27-23 15:02:06 DIRECTOR CUSTOM by Keith Burgos
== END ==
LOC: ER 14:15
DX: R00.2 Palpitations (principal); R11.10 Vomiting, unspecified; Z88.1 Allergy status to other antibiotic agents
CPT/HCPCS: 87070; 85025; 81001; 80048; 36415; 81025; 87081; 84484; 83880; 71275; 71045; Q9967; 93005

== ENCOUNTER 2024-04-03 14:36 | Emergency (ER) | payer OTHER ==
--- OUTSIDE RECORDS SUMMARY | 2024-04-03 14:39 | XMS REPORT | Continuity of Care Document ---
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
[2024-04-03] MEDS ORDERED: METOCLOPRAMIDE 10 MG/2mL INJ ONE (15:13)
[2024-04-03] MEDS ORDERED: ONDANSETRON 4 MG/2 ML VIAL ONE (15:13)
[2024-04-03] MEDS ORDERED: NA CHLORIDE 0.9% 1,000 ML ONE (15:13)
[2024-04-03] MEDS ORDERED: HYDROCODONE/APAP 5/325 MG TAB ONE (15:13)
[2024-04-03 15:18] LABS: Absolute Lymphocytes (CBC) 1.2 K/uL (0.7-4.9); Absolute Monocytes 0.6 K/uL (0.1-1.3); Basophils % 0.5 % (0-1.3); Eosinophils % 0.5 % (0-4.4); Hematocrit 38.6 % (36.0-45.0); Lymphocytes % 18.1 % (15.3-44.8); MCH 29.4 pg (27.0-35.0); MCHC 33.6 g/dL (32.0-36.0); MCV 87.3 fL (80-100); MPV 7.7 fL (7.6-11.3); Monocytes % 8.3 % (3.3-12.3); Neutrophils % 72.6 % (41.7-73.7); Platelets 224 thou/uL (152-406); RBC Red Blood Cell Count 4.42 M/uL (3.86-4.86); Red Cell Distribution Width 13.2 % (12.1-15.2)
[2024-04-03 15:31] LABS: Anion Gap 6.3 mEq/L (5.0-15.0); Potassium 3.3 mEq/L (3.5-5.1)
[2024-04-03 16:10] LABS: Specific Gravity 1.006 (1.005-1.030); Sqamous Epithelial <5 /HPF (None Seen); Transitional Epithelial <5 /HPF (None Seen); Urine Bacteria <20 /HPF (<20); Urine Bilirubin NEGATIVE (Negative); Urine Blood Negative (Negative); Urine Clarity Clear (Clear); Urine Color Colorless (Yellow); Urine Culture Reflex Order NOT NEEDED; Urine Glucose NEGATIVE (Negative); Urine Ketones 1+ (Negative); Urine Microscopic Reflex YN ORDER UMIC; Urine Nitrite NEGATIVE (Negative); Urine Protein NEGATIVE (Negative); Urine RBC <5 /HPF (None Seen); Urine Urobilinogen Normal (Normal); Urine WBC <5 /HPF (<5); Urine pH 6.5 (5.0-7.0)
--- NOTE | 2024-04-03 16:38 | RAD REPORT ---
EXAM: CT Head Brain Wo Cont HISTORY: HEADACHE COMPARISON: 12/09/2019 brain MRI. 12/08/[address] TECHNIQUE: Multiple contiguous axial images were obtained for a CT of the brain without contrast. Sag ittal and coronal reformats were performed. One or more of the following dose reduction techniques were used: Automated exposure control, adjus tment of the mA and kV according to patient size, and iterative reconstruction. Unless otherwise specified, incidental findings do not require dedicated imaging follow-up. FINDINGS: No evidence of hydrocephalus, intracranial hemorrhage, or extra-axial fluid collection. The brain is normal in morphology. The calvarium is intact. The visualized paranasal sinuses and mastoid air cells are essentially clear . IMPRESSION: No evidence of acute intracranial abnormality.
--- NOTE | 2024-04-03 16:42 | RAD REPORT ---
EXAMINATION: CTA HEAD CLINICAL INDICATION: Female, 33 years old. HEADACHE TECHNIQUE: Axial CT images were obtained through the head after intravenous contrast utilizing angiog raphic protocol with 3D post-processing (maximum intensity projection images, volume rendered images and/or shaded surface rendered images). One or more of the following dose reduction technique s were used: Automated exposure control, adjustment of the mA and/or kV according to patient size, and/or iterative reconstruction. Unless otherwise specified, incidental findings do not require dedic ated imaging follow-up. COMPARISON: No prior exam. FINDINGS: ICA: The petrous, cavernous, and supraclinoid segments of the bilateral internal carotid arteries are normal. CLIFF: Anterior cerebral arteries are normal bilaterally. The anterior communicating artery is patent. MCA: Middle cerebral arteries are normal bilaterally. [employer] PRODUCER: Posterior cerebral arteries are normal bilaterally. Vertebrobasilar: The vertebral arteries are patent. The basilar artery is normal in appearance. 3D images confirm these findings. IMPRESSION: No evidence of large vessel occlusion or hemodynamically significant stenosis.
--- NOTE | 2024-04-03 16:43 | RAD REPORT ---
EXAMINATION: CT Neck Angio CLINICAL INDICATION: Female, 33 years old. [facility] MA[facility] HEADACHE Bed Name: 14 TECHNIQUE: Axial CT images were obtained from the aortic arch to the skull base after intravenous con trast utilizing angiographic protocol. Multiplanar reformats, as well as 3D post-processing (maximum intensity projection images, volume rendered images and/or shaded surface rendered images) w ere generated and reviewed. One or more of the following dose reduction techniques were used: Automated exposure control, adjustment of the mA and/or kV according to patient size, and/or iterativ e reconstruction. Unless otherwise specified, incidental findings do not require dedicated imaging follow-up. COMPARISON: No prior exam. FINDINGS: AORTA: The imaged aortic arch is normal. Normal three-vessel configuration of the arch. CCA: No artifact The common carotid arteries are patent and normal in caliber. ICA/ECA: Bilateral internal and external carotid arteries are patent. There is no significant interna l carotid artery stenosis. VERTEBRAL: The cervical vertebral arteries are patent to the skull base. Vertebral arteries are codom inant. SOFT TISSUE: No significant neck soft tissue abnormalities. The visualized lung apices are clear. 3D images confirm these findings. IMPRESSION: No significant flow abnormality of the neck vessels is identified. NASCET criteria used to quantify ICA stenosis, with the following grading scheme: Mild 0-49% stenosis Moderate 50-69% stenosis Severe 70-99% stenosis Reference: [place] Symptomatic Carotid Endarterectomy Trial Collaborators; Kavon LEMUS, Barbie HAMMOND, Rao RB, et al. Beneficial effect of carotid endarterectomy in symptomatic patients with high-grade carotid stenosis. N Engl J Med. 1990 15;325(7):445-53.
--- NOTE | 2024-04-03 17:34 | ER ---
Nurse's Notes [facility] Name: Tara Sykes Age: 33 yrs Sex: Female : 1990 Arrival Date: 04/03/2024 Time: 14:36 Bed 14 Private MD: Diagnosis: Headache;Migraine, unspecified, not intractable, without status migrainosus Presentation: 04/03 14:44 Chief complaint: Patient states: NAUSEA AND HEADACHE STARTED 2 HOURS AGO WITH LIGHT db HEADED. TRIED TUMS AND HAS NAUSEA. DENIES VOMITING STATES TOOK 4MG OF ZOFRAN 30 MIN AGO AND 1/2 OF BC POWDER. Coronavirus screen: Client denies travel out of the [place] in the last 14 days. At this time, the client does not indicate any symptoms associated with coronavirus-19. Ebola Screen: Patient negative for fever greater than or equal to 101.5 degrees Fahrenheit, and additional compatible Ebola Virus Disease symptoms Patient denies exposure to infectious person. Patient denies travel to an Ebola-affected area in the 21 days before illness onset. No symptoms or risks identified at this time. Initial Sepsis Screen: Does the patient meet any 2 criteria? No. Patient's initial sepsis screen is negative. Does the patient have a suspected source of infection? No. Patient's initial sepsis screen is negative. Risk Assessment: Do you want to hurt yourself or someone else? Patient reports no desire to harm self or others. Onset of symptoms was April 03, 2024. 14:44 Method Of Arrival: Ambulatory db 14:44 Acuity: NIKKI 3 db Triage Assessment: 14:45 Headache History:. Headache History: Other WITH DIZZINESS. General: Appears in no db apparent distress. comfortable, Behavior is calm, cooperative. Pain: Complains of pain in head Pain currently is 10 out of 10 on a pain scale. Pain began 2 hours ago. Also complains of nausea. Neuro: Level of Consciousness is awake, alert, obeys commands, Oriented to person, place, time, situation, Reports dizziness, headache. Respiratory: Airway is patent Respiratory effort is even, unlabored, Respiratory pattern is regular, symmetrical. BI ARCHITECT: 14:45 LMP 03/18/2024, unknown db Historical: - Allergies: 14:45 Cipro; db - PMHx: 14:45 GERD; Hypercholesterolemia; db - Immunization history:: Adult Immunizations unknown. - Infectious Disease History:: Denies. - Social history:: Smoking status: Patient denies any tobacco usage or history of. Patient uses street drugs, marijuana. - Family history:: not pertinent. - Hospitalizations: : No recent hospitalization is reported. Screenin:47 [facility] ED Fall Risk Assessment (Adult) History of falling in the last 3 months, rs5 including since admission No falls in past 3 months (0 pts) Confusion or Disorientation No (0 pts) Intoxicated or Sedated No (0 pts) Impaired Gait No (0 pts) Mobility Assist Device Used No (0 pt) Altered Elimination No (0 pt) Score/Fall Risk Level 0 - 2 = Low Risk Oriented to surroundings, Maintained a safe environment. 14:47 Abuse screen: Denies threats or abuse. Nutritional screening: No deficits noted. rs5 Tuberculosis screening: No symptoms or risk factors identified. Assessment: 14:47 General: Appears in no apparent distress. uncomfortable, Behavior is calm, cooperative. rs5 Pain: Complains of pain in head Pain currently is 8 out of 10 on a pain scale. Quality of pain is described as aching, Is continuous. Neuro: Level of Consciousness is awake, alert, obeys commands, Oriented to person, place, time, situation. Cardiovascular: Patient's skin is warm and dry. Respiratory: Airway is patent Respiratory effort is even, unlabored, Respiratory pattern is regular, symmetrical. GI: Abdomen is round non-distended, Abd is soft and non tender X 4 quads. GI: Reports nausea. : No signs and/or symptoms were reported regarding the genitourinary system. EENT: No signs and/or symptoms were reported regarding the EENT system. Derm: Skin is intact, Skin is pink, warm \T\ dry. Musculoskeletal: Range of motion: intact in all extremities. 16:01 Reassessment: Patient and/or family updated on plan of care and expected duration. Pain rs5 level reassessed. Patient is alert, oriented x 3, equal unlabored respirations, skin warm/dry/pink. 16:37 Reassessment: Patient and/or family updated on plan of care and expected duration. Pain rs5 level reassessed. Patient is alert, oriented x 3, equal unlabored respirations, skin warm/dry/pink. 17:33 Reassessment: Patient and/or family updated on plan of care and expected duration. Pain rs5 level reassessed. Patient is alert, oriented x 3, equal unlabored respirations, skin warm/dry/pink. Vital Signs: 14:44 BP 112 / 87; Pulse 70; Resp 16; Temp 98.2; Pulse Ox 96% on R/A; Weight 63.5 kg; Height db 5 ft. 4 in. ; Pain 10/10; 16:39 BP 117 / 80; Pulse 74; Resp 17; Pulse Ox 99% on R/A; rs5 17:28 BP 116 / 79; Pulse 70; Resp 17; Pulse Ox 99% on R/A; rs5 14:44 Body Mass Index 24.03 (63.50 kg, 162.56 cm) db 14:44 Pain Scale: Adult db Sandra Coma Score: 17:32 Eye Response: spontaneous(4). Motor Response: obeys commands(6). Verbal Response: rn oriented(5). Total: 15. ED Course: 14:39 Patient arrived in ED. mr 14:45 Triage completed. db 14:45 Arm band placed on Patient placed in an exam room. db 14:47 Patient has correct armband on for positive identification. Placed in gown. Bed in low rs5 position. Call light in reach. Side rails up X2. 14:47 No provider procedures requiring assistance completed. rs5 14:49 Inserted saline lock: 20 gauge in left antecubital area, using aseptic technique. Blood rs5 collected. Flushed with 10 mL NS. 14:51 Brad Alvarenga MD is Attending Physician. rn 15:04 Kelvin Deal RN is Primary Nurse. rs5 16:20 CT Head Brain wo Cont In Process Unspecified. EDMS 16:[address] In Process Unspecified. EDMS 16:[address] In Process Unspecified. EDMS 17:40 Provided Education on: discharge instructions . rs5 17:45 IV discontinued, intact, bleeding controlled, No redness/swelling at site. Pressure rs5 dressing applied. Administered Medications: 15:10 Drug: NS 0.9% IV 1000 ml IV at 1000 ml once; to be given as a bolus over 60 minutes rs5 Route: IV; Rate: 1000 ml; Site: left antecubital; 16:05 Follow up: Response: No adverse reaction; IV Status: Completed infusion; IV Intake: rs5 999ml 15:10 Drug: Ondansetron IVP 4 mg IVP once; over 2 minutes Route: IVP; Site: left antecubital; rs5 15:40 Follow up: Response: No adverse reaction rs5 15:34 Drug: metoCLOPramide IVP 10 mg IVP once; over 1 to 2 minutes Route: IVP; Site: left rs5 antecubital; 16:01 Follow up: Response: No adverse reaction; Nausea is decreased rs5 18:28 Not Given (Patient Refused): hydrocodone-acetaminophen5 mg-325 mg 1 tabs PO once rs5 Medication: 16:39 VIS not applicable for this client. rs5 Intake: 16:05 IV: 999ml; Total: 999ml. rs5 Outcome: 17:34 Discharge ordered by . rn 17:45 Discharged to home ambulatory, rs5 17:45 Condition: stable rs5 17:45 Discharge instructions given to patient, family, Instructed on discharge instructions, follow up and referral plans. Demonstrated understanding of instructions, follow-up care, 17:48 Patient left the ED. rs5 Signatures: Dispatcher [employer] EDRI Bess Doyle, Reg Reg Brad Koenig MD MD rn Benton, Danielle, RN RN db Sotelo, Ricky, RN RN rs5
--- NOTE | 2024-04-03 17:35 | EDPHYS ---
Physician Documentation [facility] Name: Tara Sykes Age: 33 yrs Sex: Female : 1990 Arrival Date: 04/03/2024 Time: 14:36 Bed 14 Private MD: ED Physician Brad Alvarenga HPI: 04/03 17:29 This 33 yrs old Female presents to ER via Ambulatory with complaints of rn Headache, Nausea. 17:29 The patient complains of pain to the top of head and forehead. The patient describes rn the headache as aching. Onset: The symptoms/episode began/occurred 2 hour(s) ago. Associated signs and symptoms: Pertinent positives: nausea. 17:30 Severity of symptoms: At its worst the pain was moderate, "similar to past headaches", rn in the emergency department the pain is unchanged. The symptoms are alleviated by nothing. the symptoms are aggravated by nothing. The patient has not experienced similar symptoms in the past. The patient has not recently seen a physician. 17:31 Patient reports headache, onset 2 hours ago, similar to previous migraines but this 1 rn came on quickly and hurts a little bit more. No focal neurological deficit. Reports nausea and light sensitivity. No head injury or trauma. No fever or chills. No preceding illness.. [employer]: 14:45 LMP 03/18/2024, unknown db Historical: - Allergies: 14:45 Cipro; db - PMHx: 14:45 GERD; Hypercholesterolemia; db - Immunization history:: Adult Immunizations unknown. - Infectious Disease History:: Denies. - Social history:: Smoking status: Patient denies any tobacco usage or history of. Patient uses street drugs, marijuana. - Family history:: not pertinent. - Hospitalizations: : No recent hospitalization is reported. ROS: 17:31 Constitutional: Negative for fever, chills, and weight loss, Neck: Negative for injury, rn pain, and swelling, Cardiovascular: Negative for chest pain, palpitations, and edema, Respiratory: Negative for shortness of breath, cough, wheezing, and pleuritic chest pain, Abdomen/GI: Positive for nausea Back: Negative for injury and pain, MS/Extremity: Negative for injury and deformity, Skin: Negative for injury, rash, and discoloration, Neuro: Positive for headache Exam: 17:32 Constitutional: This is a well developed, well nourished patient who is awake, alert, rn eyes closed due to light sensitivity, improves with lights are turned off unable to open eyes Head/Face: Normocephalic, atraumatic. Eyes: Pupils equal round and reactive to light, extra-ocular motions intact. Lids and lashes normal. Conjunctiva and sclera are non-icteric and not injected. Cornea within normal limits. Periorbital areas with no swelling, redness, or edema. Neck: No meningismus Cardiovascular: Regular rate and rhythm . No pulse deficits. Respiratory: No increased work of breathing, no retractions or nasal flaring. Abdomen/GI: Soft, non-tender MS/ Extremity: Pulses equal, no cyanosis. Neurovascular intact. Full, normal range of motion. Equal circumference. Neuro: Awake and alert, GCS 15, oriented to person, place, time, and situation. Cranial nerves II-XII grossly intact. Motor strength 5/5 in all extremities. Sensory grossly intact. Cerebellar exam normal. Vital Signs: 14:44 BP 112 / 87; Pulse 70; Resp 16; Temp 98.2; Pulse Ox 96% on R/A; Weight 63.5 kg; Height db 5 ft. 4 in. ; Pain 10/10; 16:39 BP 117 / 80; Pulse 74; Resp 17; Pulse Ox 99% on R/A; rs5 17:28 BP 116 / 79; Pulse 70; Resp 17; Pulse Ox 99% on R/A; rs5 14:44 Body Mass Index 24.03 (63.50 kg, 162.56 cm) db 14:44 Pain Scale: Adult db Brilliant Coma Score: 17:32 Eye Response: spontaneous(4). Motor Response: obeys commands(6). Verbal Response: rn oriented(5). Total: 15. MDM: 14:52 Medical Screening Exam initiated rn 17:32 Differential diagnosis: hypertensive headache, intracerebral hemorrhage, migraine, rn neoplasm, tension headache, vasomotor headache. Data reviewed: vital signs, nurses notes, lab test result(s), radiologic studies, CT scan, and as a result, I will discharge patient. Counseling: I had a detailed discussion with the patient and/or guardian regarding the historical points, exam findings, and any diagnostic results supporting the discharge/admit diagnosis, lab results, radiology results, the need for outpatient follow up, to return to the emergency department if symptoms worsen or persist or if there are any questions or concerns that arise at home. Special discussion: I discussed with the patient/guardian in detail that at this point there is no indication for admission to the hospital. It is understood, however, that if the symptoms persist or worsen the patient needs to return immediately for re-evaluation. Based on the history and exam findings, there is no indication for further emergent testing or inpatient evaluation. I discussed with the patient/guardian the need to see the neurologist for further evaluation of the symptoms. I discussed with the patient/guardian the need to see the primary care provider for further evaluation of the symptoms. ED course: Patient feels much better, ready to go. CT head and angios negative for acute finding. I have personally reviewed all of the results, including but not limited to blood tests and imaging deemed necessary to safely discharge this patient at this time. All results given to and printed out for patient. I personally went over all the results with the patient and answered all questions. Patient will follow-up with PCP and or specialist as discussed. Return precautions given and understood.. 04/03 14:58 Order name: CBC with Diff; Complete Time: 17: rn 04/03 14:58 Order name: Basic Metabolic Panel; Complete Time: : rn 04/03 14:58 Order name: Test, Urine; Complete Time: : rn 04/03 14:58 Order name: Urinalysis w/ reflexes; Complete Time: 17: rn 04/03 14:58 Order name: CT Head Brain wo Cont; Complete Time: : rn 04/03 14:58 Order name: Head Angio CT; Complete Time: 17: rn 04/03 14:58 Order name: Neck Angio CT; Complete Time: 17: rn 04/03 14:58 Order name: IV Start; Complete Time: 15:35 rn Administered Medications: 15:10 Drug: NS 0.9% IV 1000 ml IV at 1000 ml once; to be given as a bolus over 60 minutes rs5 Route: IV; Rate: 1000 ml; Site: left antecubital; 16:05 Follow up: Response: No adverse reaction; IV Status: Completed infusion; IV Intake: rs5 999ml 15:10 Drug: Ondansetron IVP 4 mg IVP once; over 2 minutes Route: IVP; Site: left antecubital; rs5 15:40 Follow up: Response: No adverse reaction rs5 15:34 Drug: metoCLOPramide IVP 10 mg IVP once; over 1 to 2 minutes Route: IVP; Site: left rs5 antecubital; 16:01 Follow up: Response: No adverse reaction; Nausea is decreased rs5 18:28 Not Given (Patient Refused): hydrocodone-acetaminophen5 mg-325 mg 1 tabs PO once rs5 Disposition Summary: 04/03/24 17:34 Discharge Ordered Notes: Location: Home rn Problem: new rn Symptoms: have improved rn Condition: Stable rn Diagnosis - Headache rn - Migraine, unspecified, not intractable, without status migrainosus rn Followup: rn - With: Private Physician - When: As needed - Reason: Recheck today's complaints, Re-evaluation by your physician Forms: - Medication Reconciliation Form rn - Antibiotic rn examiner - Prescription Opioid Use rn - Patient Portal Instructions rn - Leadership Thank You Letter rn Signatures: Dispatcher [employer] EDMS Brad Alvarenga MD MD rn Benton, Danielle, RN RN Kelvin Roblero RN RN rs5 Corrections: (The following items were deleted from the chart) 14:59 14:59 CBC+H.LAB.BRZ ordered. EDMS EDMS 14:59 14:59 BASIC METABOLIC PANEL+C.LAB.BRZ ordered. EDMS EDMS 14:59 14:59 Test, Urine+UC.LAB.BRZ ordered. EDMS EDMS 14:59 14:59 Urinalysis+U.LAB.BRZ ordered. EDMS EDMS
[2024-04-05 16:10] VITALS: BP 117/80; TEMP 98.2; O2SAT 99
== END 2024-04-03 17:48 | disposition home or self-care (01) ==
LOC: ER 14:36
DX: G43.909 Migraine, unspecified, not intractable, without status migrainosus (principal); Z88.1 Allergy status to other antibiotic agents
CPT/HCPCS: 96361; 85025; 81001; 80048; 36415; 81025; 70450; 70496; 70498; 96375; 96374; 99284; Q9967; J2765; J2405; J7030